=== PATIENT | female | born 1945 | race Caucasian/White ===

== ENCOUNTER 2017-04-07 08:31 | Observation (INO) | payer OTHER, MEDICARE ==
[2017-04-07 08:38] VITALS: BMI 28.0
--- NOTE | 2017-04-07 09:10 | DR.GENAD ---
HPI - PCP Primary Care Physician: isaac - HPI Comment HPI Comment: PATIENTS GLUCOSE WAS OFF YESTERDAY BUT REGULARTED IT USING HER INSULIN PUMP. - Complaint/Symptoms Chief Complaint Doctors Comments: LEFTSIDED WEAKNESS, ATAXIA SINCE YESTERDAY. Chief Complaint:: patient stated last night her sugar was high and her insulin pump was not working so she changed her set and it started work, and then she stated she was having left sided weakness. she stated it started yesterday afternoon - Nurses notes reviewed Nurses Notes Review: Yes - Source History Provided: Patient - Mode of Arrival Mode of Arrival: Ambulatory - Timing Onset of Chief Complaint: 04/06/17 Came on: Suddenly - Duration Duration: Constant Duration: Hours - Severity Severity: Moderate PMH - PMH Past Medical History: Yes Past Medical History: Diabetes, Hypertension, Hypothyroidism Past Surgical History: Yes Surgical History: Appendectomy, , Ortho Surgery - Family History History of Family Medical Conditions: Yes Family Medical History: Cancer, MS, Coronary Artery Disease, Sudden Cardiac , Hypertension - Social History Does patient currently use any type of tobacco product: No Have you used tobacco products in the last 12 months: No Type of Tobacco Use: None Does any household member use tobacco: No Alcohol Use: None Do you use any recreational Drugs:: No Lives With: Family Lives Where: Home - infectious screening In the last 2 months have you had wt loss of >10#?: NO Have you had fever, night sweats or hemotysis?: No Have you traveled outside the country in the last 6 months?: No Isolation: Standard ROS - Review of Systems Constitutional: No Symptoms Reported Eyes: No Symptoms Reported ENTM: No Symptoms Reported Respiratoy: No Symptoms Reported Cardiovascular: No Symptoms Reported Gastrointestinal/Abdominal: No Symptoms Reported Genitourinary: No Symptoms Reported Neurological: Headache, Other (;LT SIDED WEAKNESS. RT FACIAL WEAKNESS, ATAXIA) Musculoskeletal: No Symptoms Reported Integumentary: No Symptoms Reported Hematologic/Lymphatic: No Symptoms Reported Endocrine: No Symptoms Reported All Other Systems: Reviewed and Negative PE - Vital Signs Vitals: Temperature 98.6 F Pulse Rate 73 Respiratory Rate 16 Blood Pressure [Left Arm] 126/70 Blood Pressure 145/74 O2 Sat by Pulse Oximetry 100 - General Limitations: No Limitations General Appearance: Alert - Head Head Exam: Normal Inspection - Eyes Eye exam: Normal Appearance - ENT ENT Exam: Normal External Ear Exam TM/Canal Exam: Bilateral Normal Nose Exam: Normal Nose Exam Mouth Exam: Normal Inspection Throat Exam: Normal Inspection - Neck Neck Exam: Trachea Midline - Chest Chest Inspection: Symmetric Chest Wall Rise - Respiratory Respiratory Exam: Normal Lung Sounds Bilat Respiratory Exam: Bilateral Clear to Auscultation - Cardiovascular Cardiovascular Exam: Regular Rate, Normal Rhythm, Normal Heart Sounds - Abdominal Exam Abdominal Exam: Normal Bowel Sounds, Soft. negative: Tenderness - Extremities Extremities Exam: Normal Inspection - Back Back Exam: Normal Inspection - Neurologic Neurological Exam: Alert, Oriented X3, Motor Sensory Deficit (LT SIDED WEAKNESS , RT FACIAL WEAKNESS.), Other. negative: CN II-XII Intact (RT FACIAL WEKNESS) - Psychiatric Psychiatric Exam: Normal Affect, Normal Mood - Skin Skin Exam: Normal Color MDM - Additional Information Additional Information Obtained From: Family - Differential Diagnosis Differential Diagnosis: CVA, TIA, HTN, MS Course - Treatment Treatment: SEE ORDERS. - Education/Counseling Education/Counseling: Patient, Family Educated On: Diagnosis ROR - Labs Reviewed Laboratory Results Reviewed?: Yes Result Diagrams: 04/07/17 08:58 04/07/17 08:58 Laboratory: WBC 4.9 X10^3/uL (3.6-10.0) 04/07/17 08:58 RBC 4.54 X10^6/uL (3.5-5.4) 04/07/17 08:58 Hgb 13.7 g/dL (12.0-16.0) 04/07/17 08:58 Hct 40.1 % (36.0-47.0) 04/07/17 08:58 MCV 88.3 fL (80.0-100.0) 04/07/17 08:58 MCH 30.3 pg (27.0-34.0) 04/07/17 08:58 MCHC 34.3 g/dL (33.0-35.0) 04/07/17 08:58 RDW 13.2 % (11.6-16.5) 04/07/17 08:58 Plt Count 213 X10^3/uL (150.0-450.0) 04/07/17 08:58 MPV 8.0 fL (7.4-11.0) 04/07/17 08:58 Neut % 59.1 % (42.0-75.0) 04/07/17 08:58 Lymph % 25.9 % (21.0-51.0) 04/07/17 08:58 Hardee % 9.4 % (0.0-13.0) 04/07/17 08:58 Eos % 4.6 % (0.9-2.9) H 04/07/17 08:58 Baso % 1.0 % (0.2-1.0) 04/07/17 08:58 Neut # 2.9 x10^3/uL (2.2-4.8) 04/07/17 08:58 Lymph # 1.3 X10^3/uL (1.3-2.9) 04/07/17 08:58 Hardee # 0.5 x10^3/uL (0.3-0.8) 04/07/17 08:58 Eos # 0.2 x10^3/uL (0.0-0.2) 04/07/17 08:58 Baso # 0.1 X10^3/uL (0.0-0.1) 04/07/17 08:58 Absolute Nucleated RBC 0.0 /100WBC 04/07/17 08:58 INR Target Range - 04/07/17 08:58 INR 1.03 (0.8-1.3) 04/07/17 08:58 PTT 26.8 SECONDS (22.9-36.5) 04/07/17 08:58 PTT Comment - 04/07/17 08:58 Sodium 142 mmol/L (136-145) 04/07/17 08:58 Corrected Sodium 145 mmol/L (136-145) 04/07/17 08:58 Potassium 3.8 mmol/L (3.5-5.1) 04/07/17 08:58 Chloride 107 mmol/L (98-107) 04/07/17 08:58 Carbon Dioxide 26.8 mmol/L (21-32) 04/07/17 08:58 BUN 9 mg/dL (7-18) 04/07/17 08:58 Creatinine 0.69 mg/dL (0.55-1.02) 04/07/17 08:58 Est GFR (MDRD) Af Amer > 60 (>60) 04/07/17 08:58 Est GFR (MDRD) Non-Af > 60 (>60) 04/07/17 08:58 Glucose 214 mg/dL (65-99) H 04/07/17 08:58 Calcium 8.1 mg/dL (8.5-10.1) L 04/07/17 08:58 Corrected Calcium TNP 04/07/17 08:58 Magnesium 1.8 mg/dL (1.7-2.9) 04/07/17 08:58 Total Bilirubin 0.50 mg/dL (0.2-1.0) 04/07/17 08:58 AST 15 Units/L (15-37) 04/07/17 08:58 ALT 23 Units/L (12-78) 04/07/17 08:58 Alkaline Phosphatase 74 Units/L (46-116) 04/07/17 08:58 Creatine Kinase 67 Units/L (26-192) 04/07/17 08:58 CK-MB (CK-2) < 1.0 ng/mL (0-4.0) 04/07/17 08:58 CK/CKMB % Calc 1.5 % (<4) 04/07/17 08:58 Troponin I < 0.02 ng/mL (0-1.5) 04/07/17 08:58 Total Protein 7.0 g/dL (6.4-8.2) 04/07/17 08:58 Albumin 3.5 g/dL (3.4-5.0) 04/07/17 08:58 Globulin 3.5 g/dL (2.5-4.5) 04/07/17 08:58 Albumin/Globulin Ratio 1.0 Ratio (1.1-2.1) L 04/07/17 08:58 - EKG Rhythm: NSR (EKG NOTED) - Diagnosis Discharge Problem: CVA (cerebral vascular accident) Qualifiers: CVA mechanism: unspecified Qualified Code(s): I63.9 - Cerebral infarction, unspecified TIA (transient ischemic attack) Qualifiers: Transient cerebral ischemia type: other Qualified Code(s): G45.8 - Other transient cerebral ischemic attacks and related syndromes Hypertension Qualifiers: Hypertension type: essential hypertension Qualified Code(s): I10 - Essential ( primary) hypertension - Discharge Plan Disposition: 02 XFER T-[facility] Condition: Stable - Follow ups/Referrals - Instructions
[2017-04-07 09:12] LABS: BASOPHILS # (AUTO) 0.1 X10^3/uL (0.0-0.1); EOSINOPHILS # (AUTO) 0.2 x10^3/uL (0.0-0.2); EOSINOPHILS % (AUTO) 4.6 % (0.9-2.9); HEMATOCRIT 40.1 % (36.0-47.0); HEMOGLOBIN 13.7 g/dL (12.0-16.0); LYMPHOCYTES # (AUTO) 1.3 X10^3/uL (1.3-2.9); LYMPHOCYTES % (AUTO) 25.9 % (21.0-51.0); MEAN CORPUSCULAR HEMOGLOBIN 30.3 pg (27.0-34.0); MEAN CORPUSCULAR HGB CONC 34.3 g/dL (33.0-35.0); MEAN CORPUSCULAR VOLUME 88.3 fL (80.0-100.0); MONOCYTES # (AUTO) 0.5 x10^3/uL (0.3-0.8); MONOCYTES % (AUTO) 9.4 % (0.0-13.0); NEUTROPHILS # (AUTO) 2.9 x10^3/uL (2.2-4.8); NEUTROPHILS % (AUTO) 59.1 % (42.0-75.0); PLATELET COUNT 213 X10^3/uL (150.0-450.0); RED BLOOD COUNT 4.54 X10^6/uL (3.5-5.4); RED CELL DISTRIBUTION WIDTH 13.2 % (11.6-16.5); WHITE BLOOD COUNT 4.9 X10^3/uL (3.6-10.0)
[2017-04-07 09:27] LABS: BLOOD UREA NITROGEN 9 mg/dL (7-18); CALCIUM 8.1 mg/dL (8.5-10.1); CARBON DIOXIDE 26.8 mmol/L (21-32); CHLORIDE 107 mmol/L (98-107); COR NA(FOR HYPERGLY) 145 mmol/L (136-145); CREATININE 0.69 mg/dL (0.55-1.02); GLUCOSE 214 mg/dL (65-99); SODIUM 142 mmol/L (136-145); TROPONIN I < 0.02 ng/mL (0-1.5); eGFR BLACK RACES > 60 (>60); eGFR NON BLACK RACES > 60 (>60)
[2017-04-07 09:31] LABS: ALANINE AMINOTRANSFERASE 23 Units/L (12-78); ALBUMIN 3.5 g/dL (3.4-5.0); ALKALINE PHOSPHATASE 74 Units/L (46-116); ASPARTATE AMINO TRANSFERASE 15 Units/L (15-37); CREATINE KINASE 67 Units/L (26-192); CREATINE KINASE MB < 1.0 ng/mL (0-4.0); MAGNESIUM 1.8 mg/dL (1.7-2.9)
[2017-04-07 09:35] LABS: CKMB % 1.5 % (<4)
--- NOTE | 2017-04-07 10:23 | CT ---
CT HEAD WITHOUT CONTRAST CLINICAL HISTORY: 71-year-old female with weakness. COMPARISON: None. TECHNIQUE: Multiple, non-contrasted axial CT images were obtained from the skull base to the crania l vertex. FINDINGS: There are no abnormal intra- or extra-axial fluid collections, midline shift, or mass effe ct. Shipley-white differentiation is normal. Global cortical involutional changes are present that are advanced for the patient's stated age. The ventricular system is mildly enlarged but commensurate wi th the degree of sulcal prominence. Periventricular and supraventricular white matter hypodensity is present that is nonspecific in appearance, but most likely to represent microvascular ischemic sue ges. Atherosclerotic vascular calcification is present within the carotid siphons and distal vertebr al arteries. Imaged paranasal sinuses and mastoid air cells are clear. Debris in the tympanic cavities bilaterall y, likely cerumen. IMPRESSION: 1. No definite evidence of an acute intracranial process. If clinical concern persists, recommend MR I/MRA brain. 2. Moderate microvascular white matter ischemic changes, with associated volume loss. Reported By:
[2017-04-07] MEDS ORDERED: ECOTRIN TAB 325 MG PO ONE (10:25)
[2017-04-07] MEDS ORDERED: ASPIRIN ONE (10:27)
[2017-04-07] MEDS ORDERED: ULTRAM PO PRN ×2 (11:46→16:52)
[2017-04-07] MEDS ORDERED: HumaLOG SC PRN (11:46)
[2017-04-07] MEDS ORDERED: PLAVIX PO SCH (12:00)
--- NOTE | 2017-04-07 13:34 | RAD ---
HISTORY: 71-year-old female with chest pain. Study: Frontal view of the chest. Comparison: Chest radiographs January 10, 2015 Findings: The trachea is midline. The cardiac silhouette is unremarkable. The lungs are clear without focal consolidation, effusion or pneumothorax. Soft tissues are unremarkable. Osseus structures are unrem arkable. IMPRESSION: 1. No acute cardiopulmonary disease. Reported By:
[2017-04-07] MEDS ORDERED: CALCIUM CARBONATE VITAMIN D PO SCH (14:00)
[2017-04-07 16:10] VITALS: BP 123/59
[2017-04-07 16:43] LABS: CREATINE KINASE 58 Units/L (26-192); CREATINE KINASE MB < 1.0 ng/mL (0-4.0); TROPONIN I < 0.02 ng/mL (0-1.5)
[2017-04-07] MEDS ORDERED: HumuLIN R SUBCUT PRN (16:48)
[2017-04-07 16:57] LABS: CKMB % 1.7 % (<4)
[2017-04-07] MEDS ORDERED: NS 100 ML IV 100 ML IV ONE (18:13)
--- NOTE | 2017-04-07 19:29 | VAS ---
HISTORY: Concern for carotid artery stenosis. TIA and left-sided weakness. Technique: Multiple erickson scale and color flow Doppler images of the right and left carotid arterial system were obtained. The vertebral arterial system was evaluated as well. Findings: Nonocclusive color flow Doppler is seen throughout the right and left carotid arterial system. No he modynamically significant carotid arterial stenosis is seen based on velocity criteria. There is mil d bilateral intimal thickening but without evidence for high-grade stenosis (>70%) or occlusion of t he carotid arteries. The right and left vertebral artery demonstrate antegrade flow. IMPRESSION: Mild bilateral carotid intimal thickening but without evidence for high-grade stenosis or occlusion of the carotid arteries, based on Doppler velocity criteria. Appropriate, antegrade, vertebral arterial flow. Reported By:
--- NOTE | 2017-04-07 19:57 | DR.CONSULT ---
Consult - Consultation for Day of: Date: 04/07/17 - Chief Complaint Chief Complaint: Left leg weakness progressing to involve left arm, left side of her face associated with some degree of numbness. - Allergies Allergies/Adverse Reactions: Allergies Allergy/AdvReac Type Severity Reaction Status Date / Time No Known Drug Allergies Allergy Verified 04/07/17 08:32 - History of Present Illness History of Present Illness: Patient is 72-year-old female. She was admitted to the hospital yesterday with weakness of her left leg. She was dragging her left leg. She was having difficulty with ambulation. Today the weakness progressed to involve the left arm. She is hardly able to lift her left arm. Her left side of the face was also found to be drooping. Patient is awake alert. Her speech is fluent. Her naming is intact, comprehension is intact. Her repetition is also intact. Other than this patient has no complaints. She had a CAT scan of the head which did not show any evidence of stroke. Patient has long-standing history of diabetes and hypertension. Patient is on insulin pump. - Past Medical History Past Medical History: Diabetes, Hypertension, Hypothyroidism - Past Surgical History Surgical History: Appendectomy, , Ortho Surgery - Family History Family Medical History: Cancer, [place], Coronary Artery Disease, Sudden Cardiac , Hypertension - Social History Does patient currently use any type of tobacco product: No Have you used tobacco products in the last 12 months: No Type of Tobacco Use: None Does any household member use tobacco: No Alcohol Use: None Drug Use: None - Medications Home Medications: Insulin Aspart [NovoLog insulin 10 mL vial] 1 unit SQ NEEDED 04/07/17 [ History Confirmed 04/07/17] Levothyroxine Sodium [SYNTHROID 137 mcg *] 137 mcg PO DAILY 04/07/17 [History Confirmed 04/07/17] Pitavastatin Calcium [Livalo] 2 mg PO HS 04/07/17 [History Confirmed 04/07/17] - Review of Systems Constitutional: No Symptoms Reported Eyes: No Symptoms Reported ENT: No Symptoms Reported Respiratory: No Symptoms Reported Cardiovascular: No Symptoms Reported Gastrointestinal: No Symptoms Reported Genitourinary: No Symptoms Reported Musculoskeletal: No Symptoms Reported Skin: No Symptoms Reported Neurological: See HPI - Physical Exam Vital Signs: Temperature 97.8 F Pulse Rate [Right Brachial] 66 Respiratory Rate 18 Blood Pressure [Right Arm] 123/59 O2 Sat by Pulse Oximetry 96 Oriented: Normal Eyes: Normal Ear: Normal Nose: Normal Throat: Normal Respiratory: Clear Throughout Cardiovascular: Normal : Normal Auscultation: Bowel Sounds: Normal Palpation: Normal Tenderness: Normal Skin: Normal Musculoskeletal: Normal Psychiatric: Normal, Other (Neurological examination:cognitive status: as described above. Speech: as described above. Cranial nerve examination: second cranial nerve: VISUAL CARDOZA ARE INTACT ON CONFRONTATION. third, fourth, sixth cranial nerve: extraocular movementss. Pupils are 3.5 mm in size around equal and reactive to light. Fifth cranial nerve: patient has slightly decreased sensation on the left side of the face. Seventh cranial nerve: patient has [id number] egree of weakness of facial muscles of upper motor neuron type on the left side. Eighth cranial nerve: hearing is intact bilaterally. Ninth and 10th: palate is symmetrical bilaterally. 11th cranial nerve: shoulder shrug is weaker on the left side. 12th cranial nerve: tongue is in midline. Coordination: [id number] rapid alternating movements could not be done because of significant degree of drift in the left hand. Gait: could not be tested. Motor system examination: tone is normal. motor strength : it is in the range of -4 over 5 proximally as well as distally in upper and lower extremities. On the right side the strength is 5 over 5 in upper and lower extremities. DTRs: +1 equal and symmetrical in all muscle groups. Plantars: is upgoing on the left side. Sensory system examination: patient has decreased touch temperature pinprick sensation on the left side.) Mood Description: Calm, Depressed Affect: Normal Speech Pattern: Clear - Plan Plan: 71-year-old female patient was seen and examined because of acute onset of worsening of weakness on left side. She was admitted because of weakness of the left leg. Today there was further worsening of her condition. The weakness progressed to involve the weakness of left arm and the left facial muscle weakness. In addition to this on examination patient also has decreased touch temperature pinprick sensation on the left side. Based upon the presentation of her symptoms, neurological examination it is very likely that patient has suffered a stroke related to small vessel disease in the background of long-standing diabetes and hypertension. I am recommending MRI, MRA of brain, carotid Doppler, echocardiogram, lipid profile, PT, PTT, INR. In addition to this patient would also need physical therapy and swallowing evaluation. Patient is already on antiplatelet agents and statins. I'm recommending its continuation. We will follow-up.
[2017-04-07] MEDS ORDERED: SNACK - Diabetic Appropriate PO SCH (20:00)
[2017-04-07] MEDS ORDERED: PITAVASTATIN CALCIUM 2 MG PO SCH (21:00)
--- NOTE | 2017-04-07 21:54 | CT ---
HISTORY: Left-sided weakness. Concern for carotid artery stenosis. Study: CT angiogram of the carotid vessels with contrast, using the CT carotid arterial protocol. Fo r this CT carotid artery angiographic protocol, post processing 3D reformats / of the carotid arteri al circulation and its branch vessels \T\ arteries was performed. Comparison: None. Technique: Multiple CT angiographic axial images of the carotids were obtained from the upper medias tinum to the skullbase after the administration of IV contrast. For this CT angiographic carotid and neck vascular imaging protocol, post processing 3D reformats and CTA reconstruction of the carotid arterial circulation and its branch vessels was performed. FINDINGS: Mild intimal thickening is seen within the carotid arteries and vertebrobasilar arteries. There is n o evidence for severe or significant vascular atherosclerosis or calcification, however. No high-gra de or significant carotid arterial stenosis is seen. There is no evidence for a carotid body mass le terry, dissection, or carotid occlusion. The vertebrobasilar system is unremarkable. No large aneurys m is seen. No pathologic soft tissue mass or adenopathy is observed. There is mild cervical spondylo sis but evidence for acute fracture or destructive lytic bony lesion. No other vascular abnormalitie s are seen. However, it should be noted that a CVA may could certainly be present in this patient. [facility] with IV contrast and diffusion-weighted sequencing is suggested for assuran ce. IMPRESSION: Essentially negative CTA exam of the neck vessels, as discussed above. Reported By:
[2017-04-08] MEDS ORDERED: TAB-A-VITE PO SCH (09:00)
[2017-04-08] MEDS ORDERED: SYNTHROID 100 mcg TAB PO SCH (09:00)
[2017-04-08] MEDS ORDERED: NORVASC TAB 10 MG PO SCH (09:00)
[2017-04-08] MEDS ORDERED: SYNTHROID 137 mcg TAB PO SCH (09:00)
[2017-04-08] MEDS ORDERED: AMLODIPINE BESYLATE BENAZEPRIL PO SCH (09:00)
[2017-04-08] MEDS ORDERED: ECOTRIN TAB 325 MG PO SCH (09:00)
[2017-04-08] MEDS ORDERED: OSCAL+D or CALTRATE+D PO SCH (09:00)
[2017-04-08] MEDS ORDERED: LOTENSIN TAB 10 MG PO SCH (09:00)
[2017-04-08] MEDS ORDERED: [UNRECOGNIZED DRUG - REMARK] PO SCH (09:00)
== END 2017-04-07 20:10 | disposition short-term general hospital (02) ==
LOC: ER 08:31 → MED/SURG 11:48
PROVIDERS: ADMIT Internal Medicine; ATTEND Internal Medicine
DX: G45.9 Transient cerebral ischemic attack, unspecified (principal); R07.89 Other chest pain; R29.810 Facial weakness; M62.81 Muscle weakness (generalized); R26.81 Unsteadiness on feet; I10 Essential (primary) hypertension; E03.9 Hypothyroidism, unspecified; E10.9 Type 1 diabetes mellitus without complications; Z79.4 Long term (current) use of insulin
CPT/HCPCS: 36415; 70450; 70498; 71010; 80053; 82550; 82553; 83735; 84484; 85025; 85610; 85730; 93005; 93880; 94760; 96365; 99284; 99285; A4216; A4222; G0378

== ENCOUNTER → 2017-07-08 | Outpatient (CLI) | payer OTHER, MEDICARE ==
--- NOTE | 2017-07-09 10:24 | MRI ---
MRI cervical spine without contrast Indication: Neck pain and stiffness Technique: Multiplanar, multisequence imaging of the cervical spine without IV contrast administratio n. Findings: There is loss of normal cervical lordosis with focal kyphosis at C5-6. There is minimal ret rolisthesis of the C5 vertebral body. There is diffuse disc desiccation throughout the cervical spine however there is disc space loss at C5-6. Bone marrow signal within the cervical spine is within nor mal limits. The craniocervical junction is intact; however, hypertrophic granulation tissue/pannus fo rmation posterior to the dens does cause mild narrowing of the foramen magnum without definite mass e ffect on the pericervical junction. No mass or mass effect identified within the posterior fossa appe ar the cervical cord demonstrates normal signal without evidence of atrophy or expansion. At C2-3 mild disc osteophyte complex causes very mild spinal canal stenosis without neural foraminal narrowing. At C3-4 disc osteophyte complex and uncovertebral hypertrophy with left greater than right facet arth ropathy causes mild spinal canal stenosis with mild right [id number] left neural foraminal sten osis. At C4-5 disc osteophyte complex and mild right-sided uncovertebral hypertrophy causes mild spinal can al stenosis with mild right-sided neural foraminal narrowing. At C5-6 disc osteophyte complex with bulky uncovertebral hypertrophy causes moderate to severe spinal canal stenosis with mild cord flattening. There is severe right and moderate left-sided neural jennifer inal stenosis. At C6-7 mild disc osteophyte complex causes minimal spinal canal stenosis without neural foraminal na rrowing. At C7-T1 unremarkable. Impression: Multilevel discogenic degenerative change, uncovertebral hypertrophy and facet arthropath y causing varying degrees of spinal canal and neural foraminal stenosis; however, this is most severe at C5-6 as described above. Pannus formation posterior to the dens causes narrowing of the foramen magnum without mass effect or compression of the craniocervical junction at this time. Reported By:
== END | disposition home or self-care (01) ==
LOC: RAD 10:34
PROVIDERS: ATTEND Physician Assistant
DX: M75.02 Adhesive capsulitis of left shoulder (principal); M50.21 Other cervical disc displacement, high cervical region; M48.02 Spinal stenosis, cervical region; M25.78 Osteophyte, vertebrae; M12.88 Other specific arthropathies, not elsewhere classified, other specified site
CPT/HCPCS: 72141

== ENCOUNTER → 2017-07-11 | Outpatient (CLI) | payer OTHER, MEDICARE ==
--- NOTE | 2017-07-11 12:34 | MRI ---
MRI left shoulder without contrast Indication: Shoulder pain and stiffness. Adhesive capsulitis Comparison: None Technique: Multiplanar, multi sequence MR images of the left shoulder were obtained without contrast. Findings: The coronal and axial PD sequences are degraded by motion. There are mild degenerative changes of the AC joint, with minimal effacement of the underlying rotato r cuff. Trace fluid is present within the subacromial/subdeltoid bursa. There is tendinosis of the di stal supraspinatus and infraspinatus tendons. No full-thickness cuff tear or tendon retraction identi fied. The intra-articular biceps tendon is grossly intact. No overt labral tear. There is no glenohum eral joint effusion. No significantly abnormal signal within the rotator interval or capsular thicken ing appreciated to suggest adhesive capsulitis. No muscle atrophy about the shoulder. Impression: 1. Supraspinatus and infraspinatus tendinosis, subacromial/subdeltoid bursitis. No evidence for full- thickness cuff tear or tendon retraction. 2. No MR evidence for adhesive capsulitis. 3. Mild AC joint DJD. Reported By:
== END | disposition home or self-care (01) ==
LOC: RAD 09:29
PROVIDERS: ATTEND Physician Assistant
DX: M75.02 Adhesive capsulitis of left shoulder (principal); M50.21 Other cervical disc displacement, high cervical region; M19.012 Primary osteoarthritis, left shoulder; M75.52 Bursitis of left shoulder
CPT/HCPCS: 73221

== ENCOUNTER → 2017-07-22 | Outpatient (CLI) | payer OTHER, MEDICARE ==
[~2017-07-22] MED LIST: NS 100 ML IV 100 ML IV ONE; NS 250 ML IV 250 ML IV ONE
[2017-07-22 08:11] LABS: CREATININE 1.13 mg/dL (0.55-1.02)
--- NOTE | 2017-07-23 10:19 | CT ---
HISTORY: Epigastric pain. Study: CT abdomen and pelvis with contrast Comparison: CT abdomen/pelvis dated January 23, 2013. Technique: Multiple axial images of the abdomen and pelvis were obtained from the lung bases to the pubic symphy sis after the administration of IV contrast. Dose reduction techniques including Automated Exposure Control (AEC) and adjustment of mA and kV were utilized. Findings: Bibasilar scarring versus atelectasis. Otherwise, the visualized portions of the lung bases are unrem arkable. Atrophy of the pancreas is again seen with a 10 mm hypodense lesion within the body (series 4, image 27) and a 6 mm hypodense lesion within the body/tail (series 4, image 29). These appear unch anged given technique. No new abnormalities are appreciated. 1.5 cm simple appearing cyst within the left inferior renal pole. The left kidney is otherwise unremarkable. 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 The liver, spleen, right kidney, and adrenal glan ds are unremarkable in their CT appearance. The gallbladder is unremarkable in its CT appearance. No significant mesenteric lymphadenopathy or stranding can be observed. No free fluid or free air is s een within the abdomen. The large and small bowel are unremarkable. The appendix is surgically absen t. The visualized uterus appears normal for age. No obvious adnexal lesions. The urinary bladder is g rossly unremarkable. Degenerative changes of the spine. No aggressive osseous lesions. IMPRESSION: 1. No CT evidence of acute abdominal/pelvic pathology. 2. Indeterminate pancreatic hypodensities appear unchanged given technique from prior comparison. Aga in, recommend MRI of the abdomen for further characterization. 3. Other chronic findings as above. Reported By:
== END ==
LOC: RAD 07:40
PROVIDERS: ATTEND Internal Medicine Gastroenterology
DX: R10.13 Epigastric pain (principal)
CPT/HCPCS: 36415; 74170; 82565; 84520; A4222

== ENCOUNTER 2017-09-22 15:16 | Emergency (ER) | payer OTHER, MEDICARE ==
[2017-09-22 15:30] VITALS: BMI 26.5
[2017-09-22 16:27] LABS: BASOPHILS # (AUTO) 0.1 X10^3/uL (0.0-0.1); BASOPHILS % (AUTO) 0.9 % (0.2-1.0); EOSINOPHILS # (AUTO) 0.2 x10^3/uL (0.0-0.2); EOSINOPHILS % (AUTO) 2.9 % (0.9-2.9); HEMATOCRIT 39.7 % (36.0-47.0); HEMOGLOBIN 13.7 g/dL (12.0-16.0); LYMPHOCYTES # (AUTO) 1.6 X10^3/uL (1.3-2.9); LYMPHOCYTES % (AUTO) 23.7 % (21.0-51.0); MEAN CORPUSCULAR HEMOGLOBIN 30.2 pg (27.0-34.0); MEAN CORPUSCULAR HGB CONC 34.4 g/dL (33.0-35.0); MEAN CORPUSCULAR VOLUME 87.9 fL (80.0-100.0); MEAN PLATELET VOLUME 7.8 fL (7.4-11.0); MONOCYTES # (AUTO) 0.7 x10^3/uL (0.3-0.8); MONOCYTES % (AUTO) 9.6 % (0.0-13.0); NEUTROPHILS # (AUTO) 4.3 x10^3/uL (2.2-4.8); NEUTROPHILS % (AUTO) 62.9 % (42.0-75.0); PLATELET COUNT 253 X10^3/uL (150.0-450.0); RED BLOOD COUNT 4.52 X10^6/uL (3.5-5.4); RED CELL DISTRIBUTION WIDTH 13.2 % (11.6-16.5); WHITE BLOOD COUNT 6.8 X10^3/uL (3.6-10.0)
[2017-09-22 16:38] LABS: BLOOD UREA NITROGEN 13 mg/dL (7-18); CALCIUM 9.2 mg/dL (8.5-10.1); CARBON DIOXIDE 31.2 mmol/L (21-32); CHLORIDE 106 mmol/L (98-107); COR NA(FOR HYPERGLY) 145 mmol/L (136-145); CREATININE 0.83 mg/dL (0.55-1.02); SODIUM 144 mmol/L (136-145); TROPONIN I < 0.02 ng/mL (0-1.5); eGFR BLACK RACES > 60 (>60); eGFR NON BLACK RACES > 60 (>60)
[2017-09-22 16:43] LABS: ALANINE AMINOTRANSFERASE 27 Units/L (12-78); ALBUMIN 3.6 g/dL (3.4-5.0); ALKALINE PHOSPHATASE 72 Units/L (46-116); ASPARTATE AMINO TRANSFERASE 12 Units/L (15-37); CKMB % 2.7 % (<4); CREATINE KINASE 37 Units/L (26-192); CREATINE KINASE MB < 1.0 ng/mL (0-4.0)
--- NOTE | 2017-09-22 17:01 | CT ---
HEAD CT WITHOUT IV CONTRAST CLINICAL INDICATION: Left leg weakness. Stroke March 2017 TECHNIQUE: Axial CT images from skull base to vertex without IV contrast.Dose reduction techniques in cluding Automated Exposure Control (AEC) and adjustment of mA and kV were utlized. COMPARISON: 04/07/2017 FINDINGS: Interval evolution of previous right basal ganglia infarct. There is no evidence of acute infarction , intracranial hemorrhage, mass or mass effect, or abnormal extra-axial collection. The density of th e larger dural venous sinuses is normal. The ventricles are normal in size, shape and position. The s kull base and calvarium are normal. The included paranasal sinuses and mastoid air cells are predomin antly clear. IMPRESSION: 1. No acute intracranial abnormality. 2. Interval evolution of old right basal ganglia infarct. Reported By:
--- NOTE | 2017-09-22 17:57 | DR.GENAD ---
HPI - PCP Primary Care Physician: ADRIENNE - Complaint/Symptoms Chief Complaint Doctors Comments: Patient had a CVA in March treated at [facility], children states that she is having worsening in her left aditi- paresis. She is off balance dragging left foot and worsening of facial contracture. Chief Complaint:: C/O LEFT LEG DRAGGING, STATES FACE AND MOUTH IS DRAWING - Source History Provided: Patient - Mode of Arrival Mode of Arrival: Wheelchair - Timing Onset of Chief Complaint: 09/22/17 PMH - PMH Past Medical History: Yes Past Medical History: Diabetes, Hypertension, Hypothyroidism Past Surgical History: Yes Surgical History: Appendectomy, , Ortho Surgery - Family History History of Family Medical Conditions: Yes Family Medical History: Cancer, [place], Coronary Artery Disease, Sudden Cardiac , Hypertension - Social History Does patient currently use any type of tobacco product: No Have you used tobacco products in the last 12 months: No Type of Tobacco Use: None Alcohol Use: None Do you use any recreational Drugs:: Yes Lives With: Spouse Lives Where: Home - infectious screening In the last 2 months have you had wt loss of >10#?: NO Have you had fever, night sweats or hemotysis?: No Have you traveled outside the country in the last 6 months?: No Isolation: Standard ROS - Review of Systems Eyes: No Symptoms Reported ENTM: No Symptoms Reported Respiratoy: No Symptoms Reported Cardiovascular: No Symptoms Reported Gastrointestinal/Abdominal: No Symptoms Reported Genitourinary: No Symptoms Reported Neurological: No Symptoms Reported Musculoskeletal: No Symptoms Reported Integumentary: No Symptoms Reported Hematologic/Lymphatic: No Symptoms Reported Endocrine: No Symptoms Reported Psychiatric: No Symptoms Reported All Other Systems: Reviewed and Negative PE - Vital Signs Vitals: Temperature 98.3 F Pulse Rate [Right Brachial] 68 Pulse Rate 76 Respiratory Rate 18 Blood Pressure [Right Arm] 114/64 Blood Pressure [Left Arm] 126/70 Blood Pressure 126/60 O2 Sat by Pulse Oximetry 94 - General General Appearance: Alert, In No Apparent Distress - Head Head Exam: Normal Inspection, Atraumatic - Eyes Eye exam: Normal Appearance, PERRL, EOMI - ENT ENT Exam: Normal Exam External Ear Exam: Normal External Inspection TM/Canal Exam: Bilateral Normal Nose Exam: Normal Nose Exam Mouth Exam: Normal Inspection Throat Exam: Normal Inspection - Neck Neck Exam: Normal Inspection - Chest Chest Inspection: Normal Inspection - Respiratory Respiratory Exam: Normal Lung Sounds Bilat Respiratory Exam: Bilateral Clear to Auscultation - Cardiovascular Cardiovascular Exam: Regular Rate, Normal Rhythm - Abdominal Exam Abdominal Exam: Normal Inspection, Normal Bowel Sounds Abdominal Tenderness: negative: RUQ, RLQ, LUQ, LLQ, Epigastrium, Suprapubic, Diffuse, Mild, Moderate, Severe, Other - Extremities Extremities Exam: Other (left aditi paresis) - Back Back Exam: Normal Inspection - Neurologic Neurological Exam: Alert, Oriented X3, CN II-XII Intact - Psychiatric Psychiatric Exam: Normal Affect - Skin Skin Exam: Warm, Dry, Intact Course - Consultation Called: 18:25 (Patient accepted for by Dr Jenkins) ROR - Labs Reviewed Result Diagrams: 09/22/17 16:10 09/22/17 16:10 Laboratory: WBC 6.8 X10^3/uL (3.6-10.0) 09/22/17 16:10 RBC 4.52 X10^6/uL (3.5-5.4) 09/22/17 16:10 Hgb 13.7 g/dL (12.0-16.0) 09/22/17 16:10 Hct 39.7 % (36.0-47.0) 09/22/17 16:10 MCV 87.9 fL (80.0-100.0) 09/22/17 16:10 MCH 30.2 pg (27.0-34.0) 09/22/17 16:10 MCHC 34.4 g/dL (33.0-35.0) 09/22/17 16:10 RDW 13.2 % (11.6-16.5) 09/22/17 16:10 Plt Count 253 X10^3/uL (150.0-450.0) 09/22/17 16:10 MPV 7.8 fL (7.4-11.0) 09/22/17 16:10 Neut % 62.9 % (42.0-75.0) 09/22/17 16:10 Lymph % 23.7 % (21.0-51.0) 09/22/17 16:10 [place] % 9.6 % (0.0-13.0) 09/22/17 16:10 Eos % 2.9 % (0.9-2.9) 09/22/17 16:10 Baso % 0.9 % (0.2-1.0) 09/22/17 16:10 Neut # 4.3 x10^3/uL (2.2-4.8) 09/22/17 16:10 Lymph # 1.6 X10^3/uL (1.3-2.9) 09/22/17 16:10 [place] # 0.7 x10^3/uL (0.3-0.8) 09/22/17 16:10 Eos # 0.2 x10^3/uL (0.0-0.2) 09/22/17 16:10 Baso # 0.1 X10^3/uL (0.0-0.1) 09/22/17 16:10 Absolute Nucleated RBC 0.1 /100WBC 09/22/17 16:10 INR Target Range - 09/22/17 16:10 INR 0.96 (0.8-1.3) 09/22/17 16:10 PTT 26.5 SECONDS (22.9-36.5) 09/22/17 16:10 PTT Comment - 09/22/17 16:10 Sodium 144 mmol/L (136-145) 09/22/17 16:10 Corrected Sodium 145 mmol/L (136-145) 09/22/17 16:10 Potassium 4.5 mmol/L (3.5-5.1) 09/22/17 16:10 Chloride 106 mmol/L (98-107) 09/22/17 16:10 Carbon Dioxide 31.2 mmol/L (21-32) 09/22/17 16:10 BUN 13 mg/dL (7-18) 09/22/17 16:10 Creatinine 0.83 mg/dL (0.55-1.02) 09/22/17 16:10 Est GFR (MDRD) Af Amer > 60 (>60) 09/22/17 16:10 Est GFR (MDRD) Non-Af > 60 (>60) 09/22/17 16:10 Glucose 142 mg/dL (65-99) H 09/22/17 16:10 Calcium 9.2 mg/dL (8.5-10.1) 09/22/17 16:10 Corrected Calcium TNP 09/22/17 16:10 Total Bilirubin 0.20 mg/dL (0.2-1.0) 09/22/17 16:10 AST 12 Units/L (15-37) L 09/22/17 16:10 ALT 27 Units/L (12-78) 09/22/17 16:10 Alkaline Phosphatase 72 Units/L (46-116) 09/22/17 16:10 Creatine Kinase 37 Units/L (26-192) 09/22/17 16:10 CK-MB (CK-2) < 1.0 ng/mL (0-4.0) 09/22/17 16:10 CK/CKMB % Calc 2.7 % (<4) 09/22/17 16:10 Troponin I < 0.02 ng/mL (0-1.5) 09/22/17 16:10 Total Protein 7.0 g/dL (6.4-8.2) 09/22/17 16:10 Albumin 3.6 g/dL (3.4-5.0) 09/22/17 16:10 Globulin 3.4 g/dL (2.5-4.5) 09/22/17 16:10 Albumin/Globulin Ratio 1.1 Ratio (1.1-2.1) 09/22/17 16:10 - XRAY XRAY Interpreted by: Radiologist (CT Brain:Interval evolution of previous right basal ganglia infarct. There is no evidence of acute infarction, intracraniazl hemorrhage, mass or mass effect, or abnormal extra axial collection. The density of the larger dural venous sinuses is normal. Ther ventricles are normal in size, shape and position. The skull base and calvarium are normal. 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
[2017-09-22 19:03] VITALS: BP 116/79
[2017-09-22] MEDS ORDERED: MORPHINE SULFATE INJ 4 MG IVP ONE (20:36)
[2017-09-22] MEDS ORDERED: MORPHINE SULFATE INJ 4 MG ONE (20:39)
== END 2017-09-22 20:50 | disposition short-term general hospital (02) ==
LOC: ER 15:32
DX: R29.818 Other symptoms and signs involving the nervous system (principal); Z86.73 Personal history of transient ischemic attack (TIA), and cerebral infarction without residual deficits; Z79.01 Long term (current) use of anticoagulants
CPT/HCPCS: 36415; 70450; 80053; 82550; 82553; 84484; 85025; 85610; 85730; 93005; 93010; 96365; 96367; 96374; 99284; 99285; A4222; J2270

== ENCOUNTER 2018-04-10 19:00 | Observation (INO) ==
--- NOTE | 2018-04-10 19:46 | DR.CP ---
HPI Time Seen Time seen: 19:38 HPI Comment HPI Comment: PRECORS[DIAL CHEST PAIN WITH SOB AND WEAKNESS. HAVE HEADCAHE AND VISUAL DISTURBANCES. Complaint Chief Complaint Doctor Comments: CHEST PAIN TIMES 3 DAYS. RT EYE DROOPING AND RT FACIAL WEAKNESS FOR FEW DAYS UNDER CURRENT EVALUATION. PENDING MRI. Chief Complaint:: Dull pain in her chest. Hurts to breathe and she states that she has feeling week. This has been going on for a few days more so when she does her exercises. Self Treatment fo Chief Complaint: N/A Reviewed Nurses Notes Review: Yes Source History Provided: Patient and Family Member Mode of Arrival Mode of Arrival: Ambulatory Timing Onset of Chief Complaint: 04/09/18 Came on: Suddenly Duration Duration: Intermittent Duration: Days Location Location of Chest Pain: Left and Chest Context Onset: At rest, With light exertion and With heavy exertion Cardiac Risk Factors: Diabetes PE Risk Factors: None History of: None and Aspirin in last 24 hours Prehospital Care: None and ASA Quality Quality: Aching (DULL ACHE.) Severity Severity: Moderate Modifying Factors Worsens: Breathing Impoves: Nothing Associated Signs and Symptoms Associated Signs and Symptoms: Shortness of Breath Other History Other History: WEAKNESS. PMH PMH Past Medical History: Yes Past Medical History: CVA, Diabetes and Hyperthyroidism Past Surgical History: Yes Surgical History: Appendectomy and CAPABILITY LEAD Surgery Past Surgical History Comment: 3 C-Sections Back Surgery Family History History of Family Medical Conditions: No Family Medical History: Cancer, [place], Coronary Artery Disease, Sudden Cardiac and Hypertension Social History Does patient currently use any type of tobacco product: No Have you used tobacco products in the last 12 months: No Type of Tobacco Use: None Does any household member use tobacco: No Do you use any recreational Drugs:: No Lives Where: Home infectious screening In the last 2 months have you had wt loss of >10#?: NO Have you had fever, night sweats or hemotysis?: No Have you traveled outside the country in the last 6 months?: No Isolation: Standard ROS Review of Systems Constitutional: Weakness and Fatigue Eyes: Other (RT EYE DROOPING. RT FACE NUMBNESS, DECREASE SENSATION.) ENTM: No Symptoms Reported Respiratoy: Short of Breath Cardiovascular: Chest Pain Gastrointestinal/Abdominal: No Symptoms Reported Genitourinary: No Symptoms Reported Neurological: No Symptoms Reported and Weakness Musculoskeletal: No Symptoms Reported Integumentary: No Symptoms Reported Hematologic/Lymphatic: No Symptoms Reported Endocrine: No Symptoms Reported Psychiatric: No Symptoms Reported All Other Systems: Reviewed and Negative PE Vitals Vitals: Temperature 97.7 F Pulse Rate [Apical] 53 Pulse Rate 65 Respiratory Rate 14 Blood Pressure [Right Arm] 154/69 Blood Pressure [Left Arm] 105/51 Blood Pressure 115/54 O2 Sat by Pulse Oximetry 96 General Limitations: No Limitations General Appearance: Alert and In No Apparent Distress Head Head Exam: Normal Inspection, Atraumatic, Normocephalic and Other (RT FACIAL NUMBNESS AND WEAKNESS. RT EYE DROOPING.) Eyes Eye exam: Normal Appearance, PERRL, EOMI and Other (RT EYE DROOPING.) ENT ENT Exam: Normal Exam and Other Chest Chest Inspection: Normal Inspection Respiratory Respiratory Exam: Normal Lung Sounds Bilat Respiratory Exam: Bilateral: Clear to Auscultation Cardiovascular Cardiovascular Exam: Regular Rate, Normal Rhythm and Normal Heart Sounds Pulse: Normal, Radial and Femoral Edema: Normal Abdominal Exam Abdominal Exam: Normal Inspection, Normal Bowel Sounds and Soft; negative Tenderness Extremities Extremities Exam: Normal Inspection Back Back Exam: Normal Inspection Neurologic Neurological Exam: Alert and Oriented X3 Psychiatric Psychiatric Exam: Normal Affect and Normal Mood Skin Skin Exam: Warm, Dry, Intact and Normal Color MDM Additional Information Additional Information Obtained From: Family Differential Diagnosis Differential Diagnosis: Angina, Chest Wall Pain, CHF, Gastritis, Myocardial Infarction, Pericarditis, Pleuritis (RT EYE DROOPING, RT FACIAL WEAKNESS.), Pneumonia, Pneumothorax and Pulmonary Embolus COURSE Treatment Treatment: SEE ORDERS. Consultation Consultation Comments: DISCUSS PATIENT WITH DR. RODRIGUEZ. HE WILL ADMIT PATIENT. Education/Counseling Education/Counseling: Patient and Family Educated On: Diagnosis ROR Labs Reviewed Laboratory Results Reviewed?: Yes Result Diagrams: 04/10/18 19:44 04/10/18 19:44 Laboratory: WBC 4.9 X10^3/uL (3.6-10.0) 04/10/18 19:44 RBC 3.93 X10^6/uL (3.5-5.4) 04/10/18 19:44 Hgb 12.1 g/dL (12.0-16.0) 04/10/18 19:44 Hct 35.6 % (36.0-47.0) L 04/10/18 19:44 MCV 90.6 fL (80.0-100.0) 04/10/18 19:44 MCH 30.9 pg (27.0-34.0) 04/10/18 19:44 MCHC 34.1 g/dL (33.0-35.0) 04/10/18 19:44 RDW 12.9 % (11.6-16.5) 04/10/18 19:44 Plt Count 254 X10^3/uL (150.0-450.0) 04/10/18 19:44 MPV 8.0 fL (7.4-11.0) 04/10/18 19:44 Neut % (Auto) 62.0 % (42.0-75.0) 04/10/18 19:44 Lymph % (Auto) 25.8 % (21.0-51.0) 04/10/18 19:44 [place] % (Auto) 8.1 % (0.0-13.0) 04/10/18 19:44 Eos % (Auto) 3.1 % (0.9-2.9) H 04/10/18 19:44 Baso % (Auto) 1.0 % (0.2-1.0) 04/10/18 19:44 Neut # (Auto) 3.0 x10^3/uL (2.2-4.8) 04/10/18 19:44 Lymph # (Auto) 1.3 X10^3/uL (1.3-2.9) 04/10/18 19:44 [place] # (Auto) 0.4 x10^3/uL (0.3-0.8) 04/10/18 19:44 Eos # (Auto) 0.1 x10^3/uL (0.0-0.2) 04/10/18 19:44 Baso # (Auto) 0.0 X10^3/uL (0.0-0.1) 04/10/18 19:44 Absolute Nucleated RBC 0.0 /100WBC 04/10/18 19:44 INR Target Range - 04/10/18 19:44 INR 0.92 (0.8-1.3) 04/10/18 19:44 APTT 27.9 SECONDS (22.9-36.5) 04/10/18 19:44 PTT Comment - 04/10/18 19:44 Sodium 141 mmol/L (136-145) 04/10/18 19:44 Corrected Sodium 143 mmol/L (136-145) 04/10/18 19:44 Potassium 3.8 mmol/L (3.5-5.1) 04/10/18 19:44 Chloride 104 mmol/L (98-107) 04/10/18 19:44 Carbon Dioxide 33.4 mmol/L (21-32) H 04/10/18 19:44 BUN 16 mg/dL (7-18) 04/10/18 19:44 Creatinine 1.08 mg/dL (0.55-1.02) H 04/10/18 19:44 Est GFR (MDRD) Af Amer > 60 (>60) 04/10/18 19:44 Est GFR (MDRD) Non-Af 53 (>60) L 04/10/18 19:44 Glucose 189 mg/dL (65-99) H 04/10/18 19:44 POC Glucose (mg/dL) 101 mg/dL (65-99) H 04/11/18 05:56 Calcium 9.2 mg/dL (8.5-10.1) 04/10/18 19:44 Corrected Calcium TNP 04/10/18 19:44 Total Bilirubin 0.20 mg/dL (0.2-1.0) 04/10/18 19:44 AST 15 Units/L (15-37) 04/10/18 19:44 ALT 28 Units/L (12-78) 04/10/18 19:44 Alkaline Phosphatase 80 Units/L (46-116) 04/10/18 19:44 Creatine Kinase 47 Units/L (26-192) 04/11/18 03:20 CK-MB (CK-2) < 1.0 ng/mL (0-4.0) 04/11/18 03:20 CK/CKMB % Calc 2.1 % (<4) 04/11/18 03:20 Troponin I < 0.02 ng/mL (0-1.5) 04/11/18 03:20 Total Protein 6.8 g/dL (6.4-8.2) 04/10/18 19:44 Albumin 3.4 g/dL (3.4-5.0) 04/10/18 19:44 Globulin 3.4 g/dL (2.5-4.5) 04/10/18 19:44 Albumin/Globulin Ratio 1.0 Ratio (1.1-2.1) L 04/10/18 19:44 Specimen Type Clean catch urine 04/11/18 03:32 Urine Color Pale yellow (YELLOW) 04/11/18 03:32 Urine Appearance Clear (CLEAR) 04/11/18 03:32 Urine pH 6.0 (5.0 - 8.0) 04/11/18 03:32 Ur Specific [place] 1.005 (1.000-1.030) 04/11/18 03:32 Urine Protein Negative (NEGATIVE) 04/11/18 03:32 Urine Glucose (UA) Negative (NEGATIVE) 04/11/18 03:32 Urine Ketones Negative (NEGATIVE) 04/11/18 03:32 Urine Occult Blood Negative (NEGATIVE) 04/11/18 03:32 Urine Nitrite Negative (NEGATIVE) 04/11/18 03:32 Urine Bilirubin Negative (NEGATIVE) 04/11/18 03:32 Urine Urobilinogen Normal (NORMAL) 04/11/18 03:32 Ur Leukocyte Esterase Negative (NEGATIVE) 04/11/18 03:32 XRAY XRAY Interpreted by: Radiologist XRAY Findings: REPORT DISCUSS WITH PATIENT ABD FAMILY. EKG Rate: 59 [place]: Normal Rhythm: NSR Block: None Hypertrophy: None ST: Normal Diagnosis Discharge Problem: Chest pain, Drooping eyelid, Facial weakness, Generalized muscle weakness
[2018-04-10] MEDS ORDERED: ASPIRIN 81 MG CHEWTAB PO ONE (19:48)
[2018-04-10 19:57] LABS: EOSINOPHILS # (AUTO) 0.1 x10^3/uL (0.0-0.2); EOSINOPHILS % (AUTO) 3.1 % (0.9-2.9); HEMATOCRIT 35.6 % (36.0-47.0); HEMOGLOBIN 12.1 g/dL (12.0-16.0); LYMPHOCYTES # (AUTO) 1.3 X10^3/uL (1.3-2.9); LYMPHOCYTES % (AUTO) 25.8 % (21.0-51.0); MEAN CORPUSCULAR HEMOGLOBIN 30.9 pg (27.0-34.0); MEAN CORPUSCULAR HGB CONC 34.1 g/dL (33.0-35.0); MEAN CORPUSCULAR VOLUME 90.6 fL (80.0-100.0); MONOCYTES # (AUTO) 0.4 x10^3/uL (0.3-0.8); MONOCYTES % (AUTO) 8.1 % (0.0-13.0); PLATELET COUNT 254 X10^3/uL (150.0-450.0); RED BLOOD COUNT 3.93 X10^6/uL (3.5-5.4); RED CELL DISTRIBUTION WIDTH 12.9 % (11.6-16.5); WHITE BLOOD COUNT 4.9 X10^3/uL (3.6-10.0)
--- NOTE | 2018-04-10 20:08 | RAD ---
HISTORY: 72-year-old female with dull pain in the chest with painful inspiration. Study: Frontal view of the chest. Comparison: Chest radiograph 04/07/2017 Findings: The trachea is midline. The cardiac silhouette is unremarkable. The lungs are clear without focal c onsolidation, effusion or pneumothorax. Soft tissues are unremarkable. Osseous structures are unrema rkable. IMPRESSION: 1. No acute cardiopulmonary disease. Reported By:
[2018-04-10 20:10] LABS: BLOOD UREA NITROGEN 16 mg/dL (7-18); CALCIUM 9.2 mg/dL (8.5-10.1); CARBON DIOXIDE 33.4 mmol/L (21-32); CHLORIDE 104 mmol/L (98-107); COR NA(FOR HYPERGLY) 143 mmol/L (136-145); CREATININE 1.08 mg/dL (0.55-1.02); SODIUM 141 mmol/L (136-145); TROPONIN I < 0.02 ng/mL (0-1.5); eGFR NON BLACK RACES 53 (>60)
[2018-04-10 20:13] LABS: ALANINE AMINOTRANSFERASE 28 Units/L (12-78); ALBUMIN 3.4 g/dL (3.4-5.0); ALKALINE PHOSPHATASE 80 Units/L (46-116); ASPARTATE AMINO TRANSFERASE 15 Units/L (15-37); CKMB % 2.1 % (<4); CREATINE KINASE 58 Units/L (26-192); CREATINE KINASE MB 1.2 ng/mL (0-4.0); TOTAL PROTEIN 6.8 g/dL (6.4-8.2)
[2018-04-10] MEDS: NS 1000 ML 1,000 ML IV SCH (22:55)
[2018-04-10 23:01] VITALS: BMI 22.1
[2018-04-11 03:48] LABS: CKMB % 2.1 % (<4); CREATINE KINASE 47 Units/L (26-192); CREATINE KINASE MB < 1.0 ng/mL (0-4.0); TROPONIN I < 0.02 ng/mL (0-1.5)
[2018-04-11 04:01] LABS: BILIRUBIN,URINE NEGATIVE (NEGATIVE); BLOOD/HEMOGLOBIN,URINE NEGATIVE (NEGATIVE); GLUCOSE, URINE NEGATIVE (NEGATIVE); KETONES,URINE NEGATIVE (NEGATIVE); LEUKOCYTE ESTERASE ,URINE NEGATIVE (NEGATIVE); NITRITES,URINE NEGATIVE (NEGATIVE); PROTEIN,URINE NEGATIVE (NEGATIVE); UROBILINOGEN,URINE NORMAL (NORMAL)
[2018-04-11 04:17] LABS: APPEARANCE,URINE CLEAR (CLEAR); COLOR,URINE PALE YELLOW (YELLOW)
[2018-04-11 08:25] LABS: BASOPHILS # (AUTO) 0.1 X10^3/uL (0.0-0.1); BASOPHILS % (AUTO) 1.2 % (0.2-1.0); EOSINOPHILS # (AUTO) 0.2 x10^3/uL (0.0-0.2); EOSINOPHILS % (AUTO) 3.8 % (0.9-2.9); HEMATOCRIT 39.4 % (36.0-47.0); HEMOGLOBIN 13.5 g/dL (12.0-16.0); LYMPHOCYTES # (AUTO) 1.6 X10^3/uL (1.3-2.9); MEAN CORPUSCULAR HGB CONC 34.2 g/dL (33.0-35.0); MEAN CORPUSCULAR VOLUME 90.6 fL (80.0-100.0); MEAN PLATELET VOLUME 8.5 fL (7.4-11.0); MONOCYTES # (AUTO) 0.4 x10^3/uL (0.3-0.8); MONOCYTES % (AUTO) 8.3 % (0.0-13.0); NEUTROPHILS # (AUTO) 3.1 x10^3/uL (2.2-4.8); NEUTROPHILS % (AUTO) 57.7 % (42.0-75.0); PLATELET COUNT 220 X10^3/uL (150.0-450.0); RED BLOOD COUNT 4.35 X10^6/uL (3.5-5.4); RED CELL DISTRIBUTION WIDTH 12.9 % (11.6-16.5); WHITE BLOOD COUNT 5.3 X10^3/uL (3.6-10.0)
[2018-04-11 08:32] LABS: ALANINE AMINOTRANSFERASE 28 Units/L (12-78); ALBUMIN 3.4 g/dL (3.4-5.0); ALKALINE PHOSPHATASE 87 Units/L (46-116); ASPARTATE AMINO TRANSFERASE 17 Units/L (15-37); BLOOD UREA NITROGEN 14 mg/dL (7-18); CALCIUM 9.4 mg/dL (8.5-10.1); CARBON DIOXIDE 29.8 mmol/L (21-32); CHLORIDE 107 mmol/L (98-107); CHOLESTEROL 226 mg/dL (0-200); CREATININE 0.89 mg/dL (0.55-1.02); HDL CHOLESTEROL 76 mg/dL (40-60); SODIUM 143 mmol/L (136-145); TRIGLYCERIDES 73 mg/dL (0-150); eGFR NON BLACK RACES > 60 (>60)
[2018-04-11 08:40] LABS: CREATINE KINASE 51 Units/L (26-192); TROPONIN I < 0.02 ng/mL (0-1.5)
[2018-04-11] MEDS ORDERED: INSULIN ASPART U PRN (09:36)
[2018-04-11] MEDS ORDERED: AMLODIPINE BENAZEPRIL PO SCH (09:45)
[2018-04-11] MEDS ORDERED: DICLOFENAC SODIUM PO SCH (09:45)
[2018-04-11] MEDS ORDERED: PATIENT'S HOME MEDICATION (Triamterene-Hydrochlorothiazid [Triamterene-Hydrochlorothiazid] PO SCH (09:45)
[2018-04-11] MEDS ORDERED: PROTONIX TAB 40 MG PO SCH ×3 (10:00→21:00)
[2018-04-11] MEDS ORDERED: ULTRAM ONE (10:01)
[2018-04-11] MEDS: XANAX PO SCH (10:05)
[2018-04-11] MEDS: ULTRAM PO PRN ×2 (10:05→20:44)
[2018-04-11] MEDS: LIORESAL PO SCH ×2 (12:03→20:44)
[2018-04-11] MEDS: PLAVIX PO SCH (12:03)
[2018-04-11] MEDS: NORVASC TAB 10 MG PO SCH (12:04)
[2018-04-11] MEDS: MAXZIDE 37.5/25 MG PO SCH (12:04)
[2018-04-11] MEDS: SYNTHROID 125 mcg TAB PO SCH (12:04)
[2018-04-11] MEDS: LOTENSIN TAB 10 MG PO SCH (12:05)
--- NOTE | 2018-04-11 12:20 | MRI ---
MRI BRAIN WITHOUT CONTRAST CLINICAL HISTORY: 72-year-old female weakness, dizziness and blurred vision. COMPARISON: CT head 09/22/2017. TECHNIQUE: Multiplanar, multisequence MR images of the brain were obtained without contrast. FINDINGS: There is no evidence of diffusion restriction. The craniocervical junction is normal. Pitui tary and optic nerve complex are normal. Multifocal confluent and punctate T2 FLAIR signal hyperinten sities are present within the periventricular and supraventricular white matter that are nonspecific in appearance but most likely to represent microvascular white matter ischemic changes. Chronic ische mirta insult within the right perez radiata extending through the basal ganglia with wallerian degener ation; with small volume associated encephalomalacia and punctate susceptibility consistent with prio r microhemorrhage. Normal signal characteristics and morphology are demonstrated within the cerebral cortex, corpus callosum and cerebellum. The major vascular flow voids, to include the dural venous si nuses, are intact. No other region of abnormal susceptibility on gradient imaging. Age advanced corti uyen volume loss is present, with commensurate sulcal and ventricular prominence. The basilar cisterns are normal. The orbits and globes are within normal limits. The paranasal sinuses, tympanic cavities and mastoids are clear. IMPRESSION: 1. No acute ischemic or hemorrhagic insult. 2. Chronic ischemic insult right perez radiata with wallerian degeneration. 3. Moderate, chronic microvascular white matter ischemic insult with associated volume loss. Reported By:
[2018-04-11] MEDS: NS 1000 ML 1,000 ML IV SCH ×2 (20:56)
[2018-04-11] MEDS ORDERED: CRESTOR TAB 10 MG PO SCH (21:00)
[2018-04-11] MEDS ORDERED: MIRALAX POWDER (1 DOSE 17 G) PO SCH (21:00)
[2018-04-11] MEDS ORDERED: OSCAL+D or CALTRATE+D PO SCH (21:00)
[2018-04-11] MEDS ORDERED: [UNRECOGNIZED DRUG - REMARK] PO SCH (21:00)
[2018-04-11] MEDS ORDERED: CALCIUM CARBONATE VITAMIN D3 PO SCH (21:00)
[2018-04-11] MEDS ORDERED: ZANTAC PO SCH (21:00)
--- NOTE | 2018-04-11 23:06 | DR.H&P ---
H&P - History & Physical for Day of: H&P Date: 04/10/18 - Chief Complaint Chief Complaint: CHEST PAIN, WEAKNESS, SOB, FACIAL DROOPING - History of Present Illness History of Present Illness: IS A 72 YEAR OLD PATIENT OF OURS WHO PRESENTED TO THE EMERGENCY ROOM WITH COMPLAINTS OF CHEST PAIN, SHORNTESS OF BREATH, AND GENERALIZED WEAKNESS. SHE ALSO REPORTS RIGHT EYE DROOPING AND RIGHT SIDE FACIAL WEAKNESS THAT STARTED TWO DAYS AGO. A BRAIN MRI WITHOUT CONTRAST HAS BEEN ORDERED BY HER OPTHAMOLOGIST. ON ARRIVAL, VITALS WERE 97.0-65-18-98%- 115/54. LABS WERE OBTAINED. ABNORMAL LAB VALUES INCLUDE THE FOLLOWING: HCT 35.6 , CARBON DIOXIDE 33.4, CREATININE 1.08, GLUCOSE 189. CARDIAC ENZYMES WITHIN NORMAL LIMITS. CHEST XRAY REVEALED NO ACUTE CARDIOPULMONARY DISEASE. EKG REVEALED SINUS RHYTHM WITH HR 59. WE ADMITTED PATIENT FOR FURTHER EVALUATION AND TREATMENT OF CHEST PAIN AND GENERALIZED WEAKNESS. SHE WAS STARTED ON NORMAL SALINE AT [facility]. WE PLAN TO OBTAIN SERIAL CARDIAC ENZYMES AND EKGs. OTHERWISE, WE WILL FOLLOW UP WITH AM LABS AND BRAIN MRI AND CONTINUE TO MONITOR PATIENT. - Past Medical History Past Medical History: Diabetes, Hyperthyroidism, CVA - Past Surgical History Surgical History: Appendectomy, TANGLED YARN SPOOL STRAIGHTENER Surgery - Family History Family Medical History: Cancer, [place], Coronary Artery Disease, Sudden Cardiac , Hypertension - Social History Does patient currently use any type of tobacco product: No Have you used tobacco products in the last 12 months: No Type of Tobacco Use: None Does any household member use tobacco: No Alcohol Use: None Drug Use: None - Medications Home Medications: No Known Drug Allergies Allergy (Verified 04/07/17 08:32) CONTINUE taking the following medications alprazolam [Xanax] 0.125 mg PO DAILY 04/10/18 [History] amlodipine-benazepril 1 tab PO DAILY 04/10/18 [History] baclofen 20 mg PO BID 04/10/18 [History] calcium carbonate-vitamin D3 [Caltrate 600 + D] 1 tab PO HS 04/10/18 [History] insulin aspart U-100 [Novolog U-100 Insulin aspart] See Label Instructions .ROUTE .COMPLEX PRN 04/10/18 [History] levothyroxine [Synthroid] 1 tab PO DAILY 04/10/18 [History] pantoprazole 1 tab PO DAILY 04/10/18 [History] pantoprazole [Protonix] 40 mg PO DAILY 04/10/18 [History] ranitidine HCl 1 tab PO HS 04/10/18 [History] triamterene-hydrochlorothiazid 1 tab PO DAILY 04/10/18 [History] - Physical Exam Vital Signs: Temperature 98 F Pulse Rate [Apical] 61 Pulse Rate 65 Respiratory Rate 17 Blood Pressure [Right Arm] 111/57 Blood Pressure [Left Arm] 105/51 Blood Pressure 115/54 O2 Sat by Pulse Oximetry 98 - Allergies Allergies/Adverse Reactions: Allergies Allergy/AdvReac Type Severity Reaction Status Date / Time No Known Drug Allergies Allergy Verified 04/07/17 08:32
[2018-04-12] MEDS: NS 1000 ML 1,000 ML IV SCH (01:15)
[2018-04-12 05:53] LABS: BASOPHILS # (AUTO) 0.1 X10^3/uL (0.0-0.1); BLOOD UREA NITROGEN 14 mg/dL (7-18); CALCIUM 9.4 mg/dL (8.5-10.1); CHLORIDE 106 mmol/L (98-107); CREATININE 0.86 mg/dL (0.55-1.02); EOSINOPHILS # (AUTO) 0.2 x10^3/uL (0.0-0.2); EOSINOPHILS % (AUTO) 3.8 % (0.9-2.9); HEMATOCRIT 37.3 % (36.0-47.0); LYMPHOCYTES # (AUTO) 1.8 X10^3/uL (1.3-2.9); LYMPHOCYTES % (AUTO) 35.2 % (21.0-51.0); MEAN CORPUSCULAR HEMOGLOBIN 31.3 pg (27.0-34.0); MEAN CORPUSCULAR HGB CONC 34.9 g/dL (33.0-35.0); MEAN CORPUSCULAR VOLUME 89.6 fL (80.0-100.0); MEAN PLATELET VOLUME 7.9 fL (7.4-11.0); MONOCYTES # (AUTO) 0.4 x10^3/uL (0.3-0.8); MONOCYTES % (AUTO) 8.3 % (0.0-13.0); NEUTROPHILS # (AUTO) 2.6 x10^3/uL (2.2-4.8); NEUTROPHILS % (AUTO) 51.7 % (42.0-75.0); PLATELET COUNT 250 X10^3/uL (150.0-450.0); RED BLOOD COUNT 4.16 X10^6/uL (3.5-5.4); RED CELL DISTRIBUTION WIDTH 12.9 % (11.6-16.5); SODIUM 143 mmol/L (136-145); eGFR NON BLACK RACES > 60 (>60)
[2018-04-12] MEDS: MAXZIDE 37.5/25 MG PO SCH (08:36)
[2018-04-12] MEDS: ULTRAM PO PRN (08:36)
[2018-04-12] MEDS: LIORESAL PO SCH (08:37)
[2018-04-12] MEDS: XANAX PO SCH (08:37)
[2018-04-12] MEDS: LOTENSIN TAB 10 MG PO SCH (08:38)
[2018-04-12] MEDS: NORVASC TAB 10 MG PO SCH (08:38)
[2018-04-12] MEDS: SYNTHROID 125 mcg TAB PO SCH (08:39)
[2018-04-12] MEDS: PLAVIX PO SCH (08:40)
[2018-04-12] MEDS ORDERED: PATIENT'S HOME MEDICATION PO SCH (09:00)
[2018-04-12] MEDS ORDERED: ECOTRIN TAB 325 MG PO SCH (09:00)
[2018-04-12] MEDS ORDERED: HumaLOG SC ONE ×2 (09:56→10:00)
[2018-04-12 10:32] VITALS: BP 108/53
== END 2018-04-12 12:05 | disposition home or self-care (01) ==
LOC: ICU 19:02 → ER 19:02 → ICU 22:10
PROVIDERS: ADMIT Obstetrics & Gynecology Obstetrics; ATTEND Internal Medicine
DX: Z79.4 Long term (current) use of insulin; E11.65 Type 2 diabetes mellitus with hyperglycemia; R07.89 Other chest pain; R26.89 Other abnormalities of gait and mobility; R51 Headache; Z79.01 Long term (current) use of anticoagulants; R06.02 Shortness of breath; R53.1 Weakness; Z79.899 Other long term (current) drug therapy; R29.810 Facial weakness
CPT/HCPCS: 36415; 70551; 71010; 71045; 80048; 80053; 80061; 81003; 82550; 82553; 84484; 85025; 85610; 85730; 93005; 93010; 96365; 97112; 97161; 97166; 97535; 99284; A4216; A4222; G0378; J1817; J7030

== ENCOUNTER 2020-08-09 12:04 | Observation (INO) ==
[2020-08-09] MEDS ORDERED: ANTIVERT TAB 25 MG PO PRN (14:07)
[2020-08-09] MEDS ORDERED: ZOFRAN INJ 4 MG VIAL ONE (14:18)
[2020-08-09] MEDS ORDERED: TYLENOL 325 MG TAB PO PRN (14:25)
[2020-08-09] MEDS ORDERED: ULTRAM PO PRN (14:25)
[2020-08-09] MEDS ORDERED: MORPHINE SULFATE INJ 2 MG INJ ONE (14:29)
[2020-08-09] MEDS: MORPHINE SULFATE INJ 2 MG INJ IVP PRN ×2 (14:42→20:38)
[2020-08-09] MEDS: ZOFRAN INJ 4 MG VIAL IVP PRN ×2 (14:43→20:43)
[2020-08-09 14:58] LABS: BASOPHILS % (AUTO) 0.5 % (0.2-1.0); EOSINOPHILS % (AUTO) 0.2 % (0.9-2.9); HEMATOCRIT 35.8 % (36.0-47.0); HEMOGLOBIN 11.8 g/dL (12.0-16.0); LYMPHOCYTES # (AUTO) 0.8 X10^3/uL (1.3-2.9); LYMPHOCYTES % (AUTO) 15.1 % (21.0-51.0); MEAN CORPUSCULAR HEMOGLOBIN 28.5 pg (27.0-34.0); MEAN CORPUSCULAR HGB CONC 33.1 g/dL (33.0-35.0); MEAN CORPUSCULAR VOLUME 86.2 fL (80.0-100.0); MEAN PLATELET VOLUME 7.4 fL (7.4-11.0); MONOCYTES # (AUTO) 0.3 x10^3/uL (0.3-0.8); MONOCYTES % (AUTO) 5.7 % (0.0-13.0); NEUTROPHILS # (AUTO) 4.2 x10^3/uL (2.2-4.8); NEUTROPHILS % (AUTO) 78.5 % (42.0-75.0); PLATELET COUNT 209 X10^3/uL (150.0-450.0); RED BLOOD COUNT 4.15 X10^6/uL (3.5-5.4); WHITE BLOOD COUNT 5.4 X10^3/uL (3.6-10.0)
[2020-08-09] MEDS: NS 1000 ML 1,000 ML IV SCH (15:00)
--- NOTE | 2020-08-09 15:08 | CT ---
[id number] female with dizzinessSTUDYBRAIN W/O CONCOMPARISONPrevious head CT from 04/19/2020TECHNIQUEAxial imaging was performed from the vertex to the base of skull without intravenous contrast being administered. Sagittal and coronal reformations were generated. Automated exposure control techniques were used with this exam.FINDINGSMild age related atrophic changes are present. Posterior fossa and supratentorial region demonstrate no evidence of intracranial hemorrhage or extracerebral fluid collections. Ventricles are symmetric in size and position with no mass effect seen. A focal low density is again seen in the right perez radiata extending into the basal ganglia laterally, consistent with an old lacunar infarct. On the bone windows, no acute bony abnormality is identified. Visualized aspect of the paranasal sinuses and mastoid air cells are clear.IMPRESSIONStable exam with no acute intracranial abnormality identifiedElectronically signed by: EDGARDO KRAFT (Aug 09, 2020 15:06:28)
[2020-08-09 15:17] LABS: ALANINE AMINOTRANSFERASE 21 Units/L (12-78); ALBUMIN 3.4 g/dL (3.4-5.0); ALKALINE PHOSPHATASE 79 Units/L (46-116); ASPARTATE AMINO TRANSFERASE 15 Units/L (15-37); BLOOD UREA NITROGEN 13 mg/dL (7-18); CHLORIDE 106 mmol/L (98-107); CKMB % 3.3 % (<4); COR NA(FOR HYPERGLY) 144 mmol/L (136-145); CREATINE KINASE 61 Units/L (26-192); CREATININE 0.67 mg/dL (0.55-1.02); SODIUM 142 mmol/L (136-145); TOTAL PROTEIN 6.9 g/dL (6.4-8.2); TROPONIN I < 0.02 ng/mL (0-1.5); eGFR NON BLACK RACES > 60 (>60)
[2020-08-09 15:23] LABS: CARBON DIOXIDE 26.8 mmol/L (21-32)
--- NOTE | 2020-08-09 15:27 | RAD ---
EXAM: CHEST X-RAYHISTORY: Shortness of breath. Severe dizziness. Weakness.TECHNIQUE: AP chest x-ray dated 08/09/2020 at 2:36 PM.COMPARISON: None available.FINDINGS:The heart size and mediastinum are within normal limits. The lung krishna and costophrenic angles are clear. There is no acute parenchymal infiltrate, pleural effusion, or pneumothorax seen. The visualized bony structures are within normal limits.IMPRESSION:1. No evidence for acute cardiopulmonary disease seen.Electronically signed by: Ambrosio Hanson (Aug 09, 2020 15:26:30)
[2020-08-09 15:44] VITALS: BMI 18.6
[2020-08-09 21:37] LABS: BILIRUBIN,URINE NEGATIVE (NEGATIVE); BLOOD/HEMOGLOBIN,URINE 1+ (NEGATIVE); GLUCOSE, URINE 3+ (NEGATIVE); KETONES,URINE 4+ (NEGATIVE); LEUKOCYTE ESTERASE ,URINE NEGATIVE (NEGATIVE); NITRITES,URINE NEGATIVE (NEGATIVE); PROTEIN,URINE 1+ (NEGATIVE); UROBILINOGEN,URINE NORMAL (NORMAL)
[2020-08-09 21:43] LABS: APPEARANCE,URINE CLEAR (CLEAR); COLOR,URINE YELLOW (YELLOW)
[2020-08-09 21:44] LABS: BACTERIA,URINE TRACE /HPF (NEGATIVE); MUCUS,URINE FEW /HPF (NEGATIVE); RBC,URINE NONE SEEN /HPF (0-3); SQUAMOUS EPITHELIAL CELL,UR FEW /HPF (NEGATIVE)
[2020-08-10] MEDS: NS 1000 ML 1,000 ML IV SCH ×2 (00:03→05:01)
[2020-08-10 05:41] LABS: BASOPHILS % (AUTO) 0.8 % (0.2-1.0); EOSINOPHILS # (AUTO) 0.1 x10^3/uL (0.0-0.2); EOSINOPHILS % (AUTO) 2.5 % (0.9-2.9); HEMOGLOBIN 10.7 g/dL (12.0-16.0); LYMPHOCYTES # (AUTO) 1.4 X10^3/uL (1.3-2.9); LYMPHOCYTES % (AUTO) 31.4 % (21.0-51.0); MEAN CORPUSCULAR HGB CONC 33.6 g/dL (33.0-35.0); MEAN CORPUSCULAR VOLUME 86.4 fL (80.0-100.0); MEAN PLATELET VOLUME 7.7 fL (7.4-11.0); MONOCYTES # (AUTO) 0.4 x10^3/uL (0.3-0.8); MONOCYTES % (AUTO) 9.4 % (0.0-13.0); NEUTROPHILS # (AUTO) 2.5 x10^3/uL (2.2-4.8); NEUTROPHILS % (AUTO) 55.9 % (42.0-75.0); PLATELET COUNT 207 X10^3/uL (150.0-450.0); WHITE BLOOD COUNT 4.5 X10^3/uL (3.6-10.0)
[2020-08-10 05:46] LABS: ALANINE AMINOTRANSFERASE 15 Units/L (12-78); ALBUMIN 2.7 g/dL (3.4-5.0); ALKALINE PHOSPHATASE 68 Units/L (46-116); ASPARTATE AMINO TRANSFERASE 12 Units/L (15-37); BLOOD UREA NITROGEN 13 mg/dL (7-18); CALCIUM 8.3 mg/dL (8.5-10.1); CARBON DIOXIDE 26.9 mmol/L (21-32); CHLORIDE 112 mmol/L (98-107); COR CA(FOR HYPOALB) 9.3 mg/dL (8.5-10.1); SODIUM 147 mmol/L (136-145); TOTAL PROTEIN 5.7 g/dL (6.4-8.2); eGFR NON BLACK RACES > 60 (>60)
--- NOTE | 2020-08-10 08:56 | DR.UPDATE ---
H&P Update History and Physical Update: History and Physical reviewed and patient examined. Changes noted: Yes with the following: IS A 74 YEAR OLD PATIENT OF OURS. SHE PRESENTED TO THE HOSPITAL A DIRECT ADMISSION DUE TO COMPLAINTS OF SEVERE VERTIGO WITH ASSOCIATED NAUSEA, VOMITING, AND LLQ ABDOMINAL PAIN. ABDOMINAL PAIN IS DESCRIBED LLQ, CRAMPING, AND IS CURRENTLY RATED A 3/10. SYMPTOMS STARTED APPROXIMATELY THREE DAYS PRIOR. SHE WAS GIVEN AUGMENTIN 875/125MG PO BID AND [id number] EAR DRIPS TID X 10 DAYS FOR ACUTE SINUSITIS AND FLUID IN THE EARS. SHE DENIES IMPROVEMENT IN DIZZINESS AND NAUSEA SINCE STARTING THE MEDICATIONS. ON ARRIVAL TO THE HOSPITAL, VITALS WERE 98.2-64-18-99%-153/69. LABS WERE OBTAINED. ABNORMAL LAB VALUES INCLUDE THE FOLLOWING: HGB 11.8, HCT 35.8, GLUCOSE 177. A URINALYSIS WAS OBTAINED AND REVEALED: WBC 0-2, PROTEIN 1+, GLUCOSE 3+, OCCULT BLOOD 1+. COVID-[address] WAS OBTAINED AND REVEALED: Stable exam with no acute intracranial abnormality identified. A CHEST XRAY WAS OBTAINED AND REVEALED: 1. No evidence for acute cardiopulmonary disease seen. EKG REVEALED: SINUS RHYTHM WITH HR 66. SHE WAS STARTED ON NORMAL SALINE AT 80 ML/HR, ZOFRAN 4MG IV Q4H PRN, MORPHINE 1- 2MG IV Q4H PRN PAIN, MECLIZINE 25MG PO TID PRN, AND HER HOME MEDICATIONS WERE RESUMED. OTHERWISE, WE PLAN TO FOLLOW UP WITH AM LABS AND CONTINUE TO MONITOR. Prescription drug monitoring program results: PDMP reviewed and no concerns joseph ntified H&P Reviewed: Yes Patient was examined?: Yes
[2020-08-10] MEDS ORDERED: PAXIL PO SCH ×3 (09:00→11:00)
[2020-08-10] MEDS ORDERED: SYNTHROID 125 mcg TAB PO SCH (09:00)
[2020-08-10] MEDS ORDERED: TAB-A-VITE PO SCH (09:00)
[2020-08-10] MEDS ORDERED: CITRACAL + VITAMIN D PO SCH (09:00)
[2020-08-10] MEDS ORDERED: ALLEGRA PO SCH (09:00)
[2020-08-10] MEDS ORDERED: LOTENSIN TAB 10 MG PO SCH (09:00)
[2020-08-10] MEDS ORDERED: PROTONIX TAB 40 MG PO SCH (09:00)
[2020-08-10] MEDS ORDERED: LIPITOR TAB 10 MG PO SCH (09:00)
[2020-08-10] MEDS ORDERED: NORVASC TAB 10 MG PO SCH (09:00)
[2020-08-10] MEDS ORDERED: ASPIRIN EC 81 MG PO SCH (09:00)
[2020-08-10] MEDS ORDERED: AUGMENTIN 875 MG/125 MG TAB PO SCH (10:00)
[2020-08-10] MEDS: CLARITIN-D 12 HOUR TAB PO SCH ×2 (13:09→13:56)
[2020-08-10] MEDS ORDERED: CORTISPORIN OTIC SUSP OT SCH (14:00)
[2020-08-10 14:15] VITALS: BP 122/75
[2020-08-10] MEDS ORDERED: SINGULAIR TAB 10 MG PO SCH (21:00)
[2020-08-11] MEDS ORDERED: ZOLOFT PO SCH (09:00)
== END 2020-08-10 13:50 | disposition home or self-care (01) ==
LOC: MED/SURG
PROVIDERS: ADMIT Internal Medicine; ATTEND Internal Medicine
DX: R11.2 Nausea with vomiting, unspecified; R10.32 Left lower quadrant pain; R06.02 Shortness of breath; E11.65 Type 2 diabetes mellitus with hyperglycemia; Z20.828 Contact with and (suspected) exposure to other viral communicable diseases; Z79.899 Other long term (current) drug therapy; R42 Dizziness and giddiness

== ENCOUNTER 2021-09-21 13:27 | Observation (INO) ==
--- NOTE | 2021-09-21 13:39 | DR.DIZZY ---
HPI Time seen Time Seen by Provider: 09/21/21 13:38 PMH PMH Past Medical History: CVA, Diabetes and Hyperthyroidism Past Surgical History: Yes Surgical History: Appendectomy, and Ortho Surgery Family History Family Medical History: Cancer, [place], Coronary Artery Disease, Sudden Cardiac and Hypertension Social History Do you use any recreational Drugs:: No PE Vital Signs Vitals: Temperature 98.4 F Pulse Rate 68 Respiratory Rate 20 Blood Pressure [Right Arm] 141/65 Blood Pressure 137/87 O2 Sat by Pulse Oximetry 98 ROR Labs Reviewed Result Diagrams: 09/21/21 14:20 09/21/21 14:20 Laboratory: WBC 4.3 X10^3/uL (3.6-10.0) 09/21/21 14:20 RBC 3.80 X10^6/uL (3.5-5.4) 09/21/21 14:20 Hgb 11.1 g/dL (12.0-16.0) L 09/21/21 14:20 Hct 32.8 % (36.0-47.0) L 09/21/21 14:20 MCV 86.5 fL (80.0-100.0) 09/21/21 14:20 MCH 29.2 pg (27.0-34.0) 09/21/21 14:20 MCHC 33.7 g/dL (33.0-35.0) 09/21/21 14:20 RDW 15.0 % (11.6-16.5) 09/21/21 14:20 Plt Count 214 X10^3/uL (150.0-450.0) 09/21/21 14:20 MPV 7.6 fL (7.4-11.0) 09/21/21 14:20 Neut % (Auto) 59.8 % (42.0-75.0) 09/21/21 14:20 Lymph % (Auto) 27.8 % (21.0-51.0) 09/21/21 14:20 Bollinger % (Auto) 8.0 % (0.0-13.0) 09/21/21 14:20 Eos % (Auto) 3.5 % (0.9-2.9) H 09/21/21 14:20 Baso % (Auto) 0.9 % (0.2-1.0) 09/21/21 14:20 Neut # (Auto) 2.6 x10^3/uL (2.2-4.8) 09/21/21 14:20 Lymph # (Auto) 1.2 X10^3/uL (1.3-2.9) L 09/21/21 14:20 Bollinger # (Auto) 0.3 x10^3/uL (0.3-0.8) 09/21/21 14:20 Eos # (Auto) 0.1 x10^3/uL (0.0-0.2) 09/21/21 14:20 Baso # (Auto) 0.0 X10^3/uL (0.0-0.1) 09/21/21 14:20 Absolute Nucleated RBC 0.0 /100WBC 09/21/21 14:20 Sodium 138 mmol/L (136-145) 09/21/21 14:20 Corrected Sodium 140 mmol/L (136-145) 09/21/21 14:20 Potassium 3.0 mmol/L (3.5-5.1) L* 09/21/21 14:20 Chloride 104 mmol/L (98-107) 09/21/21 14:20 Carbon Dioxide 31.0 mmol/L (21-32) 09/21/21 14:20 BUN 18 mg/dL (7-18) 09/21/21 14:20 Creatinine 0.70 mg/dL (0.55-1.02) 09/21/21 14:20 Est GFR (MDRD) Af Amer > 60 (>60) 09/21/21 14:20 Est GFR (MDRD) Non-Af > 60 (>60) 09/21/21 14:20 Glucose 179 mg/dL (65-99) H 09/21/21 14:20 Calcium 8.5 mg/dL (8.5-10.1) 09/21/21 14:20 Corrected Calcium 9.1 mg/dL (8.5-10.1) 09/21/21 14:20 Total Bilirubin 0.30 mg/dL (0.2-1.0) 09/21/21 14:20 AST 16 Units/L (15-37) 09/21/21 14:20 ALT 22 Units/L (12-78) 09/21/21 14:20 Alkaline Phosphatase 66 Units/L (46-116) 09/21/21 14:20 Creatine Kinase 73 Units/L (26-192) 09/21/21 14:20 CK-MB (CK-2) 1.5 ng/mL (0-4.0) 09/21/21 14:20 CK/CKMB % Calc 2.1 % (<4) 09/21/21 14:20 Troponin I < 0.02 ng/mL (0-1.5) 09/21/21 14:20 Total Protein 6.4 g/dL (6.4-8.2) 09/21/21 14:20 Albumin 3.2 g/dL (3.4-5.0) L 09/21/21 14:20 Globulin 3.2 g/dL (2.5-4.5) 09/21/21 14:20 Albumin/Globulin Ratio 1.0 Ratio (1.1-2.1) L 09/21/21 14:20 Specimen Type Clean catch urine 09/21/21 16:55 Urine Color Yellow (YELLOW) 09/21/21 16:55 Urine Appearance Clear (CLEAR) 09/21/21 16:55 Urine pH 6.0 (5.0 - 8.0) 09/21/21 16:55 Ur Specific Rhododendron 1.010 (1.000-1.030) 09/21/21 16:55 Urine Protein Negative (NEGATIVE) 09/21/21 16:55 Urine Glucose (UA) Negative (NEGATIVE) 09/21/21 16:55 Urine Ketones 1+ (NEGATIVE) 09/21/21 16:55 Urine Occult Blood Negative (NEGATIVE) 09/21/21 16:55 Urine Nitrite Negative (NEGATIVE) 09/21/21 16:55 Urine Bilirubin Negative (NEGATIVE) 09/21/21 16:55 Urine Urobilinogen Normal (NORMAL) 09/21/21 16:55 Ur Leukocyte Esterase 2+ (NEGATIVE) 09/21/21 16:55 Urine RBC None seen /HPF (0-3) 09/21/21 16:55 Urine WBC 3-5 /HPF (0-5) 09/21/21 16:55 Ur Squamous Epith Cells Few /HPF (NEGATIVE) 09/21/21 16:55 Urine Bacteria Trace /HPF (NEGATIVE) 12/30/21 16:55 Ur Culture Indicated? No/not indicated 09/21/21 16:55 SARS CoV-2 RNA Rapid YOLY Negative (NEGATIVE) 09/21/21 17:31 Opioid Opioid Risk Tool Age (Abhay box if 16-45): No History of Preadolescent Sexual Abuse: No Total: 0 Total Score Risk Category: Low Risk Copyright: Bill BOLTON predicting aberrant behaviors Instructions Forms: Precautions for COVID19 [facility] Social Distancing
[2021-09-21 14:30] LABS: BASOPHILS % (AUTO) 0.9 % (0.2-1.0); EOSINOPHILS # (AUTO) 0.1 x10^3/uL (0.0-0.2); EOSINOPHILS % (AUTO) 3.5 % (0.9-2.9); HEMATOCRIT 32.8 % (36.0-47.0); HEMOGLOBIN 11.1 g/dL (12.0-16.0); LYMPHOCYTES # (AUTO) 1.2 X10^3/uL (1.3-2.9); LYMPHOCYTES % (AUTO) 27.8 % (21.0-51.0); MEAN CORPUSCULAR HEMOGLOBIN 29.2 pg (27.0-34.0); MEAN CORPUSCULAR HGB CONC 33.7 g/dL (33.0-35.0); MEAN CORPUSCULAR VOLUME 86.5 fL (80.0-100.0); MEAN PLATELET VOLUME 7.6 fL (7.4-11.0); MONOCYTES # (AUTO) 0.3 x10^3/uL (0.3-0.8); NEUTROPHILS # (AUTO) 2.6 x10^3/uL (2.2-4.8); NEUTROPHILS % (AUTO) 59.8 % (42.0-75.0); PLATELET COUNT 214 X10^3/uL (150.0-450.0); WHITE BLOOD COUNT 4.3 X10^3/uL (3.6-10.0)
--- NOTE | 2021-09-21 14:44 | CT ---
HISTORYPT REPORTS THAT WHILE STANDING OUTSIDE SHE GOT DIZZY AND STARTED TO SWAY AND SOMEONE HAD TO HELP HER SIT, PT REPORTS THIS HAS BEEN GOING ON FOR A WHILE ( BEING UNSTEADY ON HER FEET )STUDYBRAIN W/O CONCOMPARISONCT brain 08/09/2020.TECHNIQUEMultiple axial images of the head were performed from the skullbase to the vertex using standard departmental protocol. Sagittal and coronal reformatted images were performed. Dose reduction techniques including Automated Exposure Control (AEC) and adjustment of mA and kV were utilized.FINDINGSThe lateral ventricles and basilar cisterns are patent.No parenchymal mass or hematoma. Metz-white differentiation appears acutely preserved. Mild low attenuation change in the subcortical and deep supratentorial white matter. Chronic right basal ganglia lacunar infarct.No extra-axial collection.The globes are intact.No air fluid levels in the paranasal sinuses. No paranasal sinus wall thickening or sclerosis. Mastoid air cells are clear.The calvarium is intact.IMPRESSIONNo acute intracranial abnormality. Stable chronic right basal ganglia lacunar infarct.Electronically signed by: Edgar Yeager (Sep 21, 2021 14:42:57)
[2021-09-21 14:53] LABS: ALANINE AMINOTRANSFERASE 22 Units/L (12-78); ALBUMIN 3.2 g/dL (3.4-5.0); ALKALINE PHOSPHATASE 66 Units/L (46-116); ASPARTATE AMINO TRANSFERASE 16 Units/L (15-37); BLOOD UREA NITROGEN 18 mg/dL (7-18); CALCIUM 8.5 mg/dL (8.5-10.1); CHLORIDE 104 mmol/L (98-107); CKMB % 2.1 % (<4); COR CA(FOR HYPOALB) 9.1 mg/dL (8.5-10.1); COR NA(FOR HYPERGLY) 140 mmol/L (136-145); CREATINE KINASE 73 Units/L (26-192); CREATINE KINASE MB 1.5 ng/mL (0-4.0); SODIUM 138 mmol/L (136-145); TOTAL PROTEIN 6.4 g/dL (6.4-8.2); TROPONIN I < 0.02 ng/mL (0-1.5); eGFR NON BLACK RACES > 60 (>60)
--- NOTE | 2021-09-21 15:03 | RAD ---
EXAM: CHEST X-RAYHISTORY: Dizziness.TECHNIQUE: AP CXR dated September 21, 2021 at 2:22 PM.COMPARISON: CXR dated August 09, 2020.FINDINGS:The heart size and mediastinum are within normal limits. The lung krishna and costophrenic angles are clear. There is no acute parenchymal infiltrate, pleural effusion, or pneumothorax seen. The visualized bony structures are within normal limits.IMPRESSION:1. No evidence for acute cardiopulmonary disease seen.2. No significant interval change from the previous exam.Electronically signed by: Ambrosio Hanson (Sep 21, 2021 15:02:00)
[2021-09-21] MEDS ORDERED: KLOR-CON PO ONE (15:05)
[2021-09-21] MEDS ORDERED: KLOR-CON ONE (15:08)
[2021-09-21 17:08] LABS: BILIRUBIN,URINE NEGATIVE (NEGATIVE); BLOOD/HEMOGLOBIN,URINE NEGATIVE (NEGATIVE); GLUCOSE, URINE NEGATIVE (NEGATIVE); KETONES,URINE 1+ (NEGATIVE); LEUKOCYTE ESTERASE ,URINE 2+ (NEGATIVE); NITRITES,URINE NEGATIVE (NEGATIVE); PROTEIN,URINE NEGATIVE (NEGATIVE); UROBILINOGEN,URINE NORMAL (NORMAL)
[2021-09-21 17:31] LABS: APPEARANCE,URINE CLEAR (CLEAR); COLOR,URINE YELLOW (YELLOW); RBC,URINE NONE SEEN /HPF (0-3)
[2021-09-21 17:32] LABS: BACTERIA,URINE TRACE /HPF (NEGATIVE); SQUAMOUS EPITHELIAL CELL,UR FEW /HPF (NEGATIVE)
[2021-09-21 20:23] VITALS: BMI 3430.6
[2021-09-22] MEDS ORDERED: D50W ABBOJECT SYR IV ONE (03:20)
[2021-09-22] MEDS: D50W ABBOJECT SYR ONE ×2 (03:30→03:37)
[2021-09-22] MEDS ORDERED: NS 1,000 ML IV 1,000 ML IV SCH (04:00)
[2021-09-22 05:29] LABS: BASOPHILS % (AUTO) 1.2 % (0.2-1.0); EOSINOPHILS # (AUTO) 0.2 x10^3/uL (0.0-0.2); EOSINOPHILS % (AUTO) 4.9 % (0.9-2.9); HEMATOCRIT 33.5 % (36.0-47.0); HEMOGLOBIN 11.4 g/dL (12.0-16.0); LYMPHOCYTES % (AUTO) 30.5 % (21.0-51.0); MEAN CORPUSCULAR HEMOGLOBIN 29.2 pg (27.0-34.0); MEAN CORPUSCULAR HGB CONC 34.1 g/dL (33.0-35.0); MEAN CORPUSCULAR VOLUME 85.6 fL (80.0-100.0); MONOCYTES # (AUTO) 0.3 x10^3/uL (0.3-0.8); MONOCYTES % (AUTO) 9.8 % (0.0-13.0); NEUTROPHILS # (AUTO) 1.8 x10^3/uL (2.2-4.8); NEUTROPHILS % (AUTO) 53.6 % (42.0-75.0); PLATELET COUNT 212 X10^3/uL (150.0-450.0); RED BLOOD COUNT 3.91 X10^6/uL (3.5-5.4); RED CELL DISTRIBUTION WIDTH 14.8 % (11.6-16.5); WHITE BLOOD COUNT 3.3 X10^3/uL (3.6-10.0)
[2021-09-22 05:43] LABS: ALANINE AMINOTRANSFERASE 20 Units/L (12-78); ALKALINE PHOSPHATASE 63 Units/L (46-116); ASPARTATE AMINO TRANSFERASE 17 Units/L (15-37); BLOOD UREA NITROGEN 13 mg/dL (7-18); CALCIUM 8.6 mg/dL (8.5-10.1); CARBON DIOXIDE 27.5 mmol/L (21-32); CHLORIDE 106 mmol/L (98-107); COR CA(FOR HYPOALB) 9.4 mg/dL (8.5-10.1); COR NA(FOR HYPERGLY) 143 mmol/L (136-145); CREATININE 0.62 mg/dL (0.55-1.02); SODIUM 141 mmol/L (136-145); TOTAL PROTEIN 6.4 g/dL (6.4-8.2); eGFR NON BLACK RACES > 60 (>60)
[2021-09-22 06:01] LABS: CKMB % 1.9 % (<4); CREATINE KINASE 62 Units/L (26-192); CREATINE KINASE MB 1.2 ng/mL (0-4.0); TROPONIN I < 0.02 ng/mL (0-1.5)
[2021-09-22] MEDS: NovoLIN R (or HumuLIN R) SUBCUT PRN ×2 (09:00→12:23)
[2021-09-22] MEDS ORDERED: K-DUR TAB 20 MEQ PO PRN (10:15)
[2021-09-22 11:33] VITALS: BP 132/61
[2021-09-22 11:50] LABS: CKMB % 1.9 % (<4); CREATINE KINASE 63 Units/L (26-192); CREATINE KINASE MB 1.2 ng/mL (0-4.0); TROPONIN I < 0.02 ng/mL (0-1.5)
[2021-09-22 11:59] LABS: CHOL/HDL RATIO 2.6 (0.0-5.0)
--- NOTE | 2021-09-22 13:02 | CT ---
HISTORYTIASTUDYCT brain without [id number]/30/2021[facility] axial images of the brain were obtained from the skull base to the vertex without administration of IV contrast. Dose reduction techniques including Automated Exposure Control (AEC) and adjustment of mA and kV were utilized.FINDINGSNo acute intraparenchymal hemorrhage or mass can be identified. No extra-axial fluid collections are seen. No alteration in the attenuation of the brain parenchyma can be identified to suggest acute or subacute ischemic change. The ventricular system is symmetric and nondilated. The extracranial structures appear unremarkable.IMPRESSION1. No acute intracranial process can be identified.Electronically signed by: SHEA DANG (Sep 22, 2021 13:00:28)
--- NOTE | 2021-09-22 13:12 | RAD ---
HISTORYweaknessSTUDYSingle-view [id number]/30/2021FINDINGSThe trachea is midline. The cardiac silhouette is unremarkable . The lungs are clear without focal infiltrate or effusion. The bony thorax is unremarkable.IMPRESSIONNo acute cardiopulmonary disease.Electronically signed by: SHEA DANG (Sep 22, 2021 13:10:51)
--- NOTE | 2021-09-22 15:29 | DR.H&P ---
H&P - History & Physical for Day of: H&P Date: 09/21/21 - Chief Complaint Chief Complaint: DIZZINESS, WEAKNESS - History of Present Illness History of Present Illness: PT IS 76 WF WITH PMH OF CVA, ER ADMISSION WITH CO NEW ONSET DIZZINESS AND WEAKNESS MORE THAN USUAL. PT REPORTS SHE SEES DR WRIGHT AND RECENTLY HAD GOOD CARDIAC REPORT, WITH CAROTIDS US PER DR DELEON WITHIN THE PAST 6 MOS. PT STATES SHE DID NOT HAVE LOC OR AMS, BUT "WALKING IN CIRCLES" WEAKER ON LEFT SIDE. PT HAS PMH OF CVA, HTN, DM, CAD. PT ADMITTED FOR TREATMENT AND EVALUATION OF ACUTE ILLNESS - Past Medical History Past Medical History: Anxiety, Arthritis, CVA, Diabetes, Hyperthyroidism - Past Surgical History Surgical History: - Family History Family Medical History: Diabetes Mellitus, Cancer, Hypertension - Social History Does patient currently use any type of tobacco product: No Have you used tobacco products in the last 12 months: No Type of Tobacco Use: None Does any household member use tobacco: No Alcohol Use: None - Medications Home Medications: No Known Drug Allergies Allergy (Verified 09/21/21 17:23) CONTINUE taking the following medications alprazolam 0.25 mg PO DAILY 09/21/21 [History] baclofen 20 mg PO TID 09/21/21 [History] fexofenadine [Jessika] 180 mg PO Q24H 09/21/21 [History] hydrochlorothiazide 25 mg PO DAILY PRN 09/21/21 [History] - Review of Systems Constitutional: Weakness Eyes: No Symptoms Reported ENT: No Symptoms Reported Respiratory: denies: Shortness of Breath, SOB with Excertion Cardiovascular: denies: Chest Pain, Edema Gastrointestinal: No Symptoms Reported Genitourinary: No Symptoms Reported Musculoskeletal: No Symptoms Reported Skin: No Symptoms Reported Neurological: Weakness, Incoordination. denies: Change in Speech, Confusion - Physical Exam Vital Signs: Temperature 98.4 F Pulse Rate [Brachial] 60 Pulse Rate 63 Respiratory Rate 20 Blood Pressure [Right Arm] 132/61 Blood Pressure 137/87 O2 Sat by Pulse Oximetry 97 Oriented: Normal, Person Ear: Normal Nose: Normal Throat: Normal Respiratory: Clear Throughout Cardiovascular: Normal : Normal Auscultation: Bowel Sounds: Normal Palpation: Normal Tenderness: Normal Skin: Normal Musculoskeletal: Left, Hand, Leg, Motor Deficit (MILD CHRONIC WEAKNESS) Mood Description: Calm Speech Pattern: Clear, Appropriate - Assessment/Plan (1) TIA (transient ischemic attack) Status: Acute Plan: ADMIT, SERIAL EKG AND CE. CT HEAD ON ADMISSION. VERIFY HOME MEDICATION. ASPIRIN, STATIN THERAPY. BP AND BS CONTROL, POTASSIUM REPLACEMENT (2) Hypertension Status: Acute (3) Hypokalemia Status: Acute (4) Diabetes mellitus type 1 Status: Acute (5) Hypothyroidism Status: Acute (6) Anxiety Status: Acute - Allergies Allergies/Adverse Reactions: Allergies Allergy/AdvReac Type Severity Reaction Status Date / Time No Known Drug Allergies Allergy Verified 09/21/21 17:23
[2021-09-22] MEDS ORDERED: ASPIRIN EC 81 MG PO SCH (16:00)
[2021-09-22] MEDS ORDERED: XANAX PO SCH (16:00)
[2021-09-23] MEDS ORDERED: NORVASC TAB 10 MG PO SCH (09:00)
[2021-09-23] MEDS ORDERED: LOTENSIN TAB 10 MG PO SCH (09:00)
== END 2021-09-22 16:04 | disposition home or self-care (01) ==
LOC: ER 13:27 → MED/SURG 13:27
PROVIDERS: ADMIT Internal Medicine; ATTEND Internal Medicine
DX: I25.10 Atherosclerotic heart disease of native coronary artery without angina pectoris; M19.90 Unspecified osteoarthritis, unspecified site; E87.6 Hypokalemia; R06.02 Shortness of breath; R42 Dizziness and giddiness; E03.8 Other specified hypothyroidism; F41.8 Other specified anxiety disorders; Z20.822 Contact with and (suspected) exposure to COVID-19; E78.2 Mixed hyperlipidemia; I10 Essential (primary) hypertension; G45.8 Other transient cerebral ischemic attacks and related syndromes; E11.65 Type 2 diabetes mellitus with hyperglycemia

== ENCOUNTER 2022-05-10 10:21 | Observation (INO) ==
[2022-05-10] MEDS ORDERED: ZOFRAN INJ 4 MG VIAL IVP PRN (11:41)
[2022-05-10] MEDS ORDERED: MORPHINE SULFATE INJ 2 MG INJ IVP PRN (11:41)
[2022-05-10] MEDS ORDERED: NORCO 5/325 MG TAB PO PRN (11:42)
[2022-05-10] MEDS: TORADOL 30 MG VIAL IVP SCH ×2 (14:06→22:34)
[2022-05-10] MEDS: NS 1,000 ML IV 1,000 ML IV SCH (14:06)
[2022-05-10 14:22] VITALS: BMI 22.1
--- NOTE | 2022-05-10 14:51 | RAD ---
HISTORYBack painSTUDYLumbar spine three viewsCOMPARISONNoneFINDINGSMild levocurvature of the lumbar spine with anatomic alignment. Degenerative disc narrowing with small osteophytes present at multiple lumbar levels without fracture, bone destruction or subluxation. The pedicles, facets and sacroiliac joints are unremarkable for age.IMPRESSIONNo acute findings. Mild levocurvature with moderately advanced multilevel degenerative disc disease and spondylosis.Electronically signed by: MCKINLEY GUILLEN (May 10, 2022 14:50:11)
--- NOTE | 2022-05-10 14:53 | RAD ---
HISTORYBilateral hip painSTUDYBilateral hips two viewsCOMPARISONLeft hip 06/10/2020FINDINGSThere is no evidence for fracture or dislocation or osteolytic disease involving either hip. There is mild degenerative bone production at the acetabular margins, right greater than left. The periarticular soft tissues are normal.IMPRESSIONNo acute findings. Asymmetric hip osteoarthrosis, right greater than left.Electronically signed by: MCKINLEY GUILLEN (May 10, 2022 14:52:03)
[2022-05-10 15:36] LABS: BASOPHILS % (AUTO) 0.6 % (0.2-1.0); EOSINOPHILS # (AUTO) 0.1 x10^3/uL (0.0-0.2); EOSINOPHILS % (AUTO) 1.8 % (0.9-2.9); HEMATOCRIT 33.7 % (36.0-47.0); HEMOGLOBIN 11.4 g/dL (12.0-16.0); LYMPHOCYTES # (AUTO) 1.1 X10^3/uL (1.3-2.9); MEAN CORPUSCULAR HEMOGLOBIN 27.6 pg (27.0-34.0); MEAN CORPUSCULAR HGB CONC 33.7 g/dL (33.0-35.0); MEAN CORPUSCULAR VOLUME 81.9 fL (80.0-100.0); MEAN PLATELET VOLUME 7.2 fL (7.4-11.0); MONOCYTES # (AUTO) 0.5 x10^3/uL (0.3-0.8); MONOCYTES % (AUTO) 9.3 % (0.0-13.0); NEUTROPHILS # (AUTO) 3.9 x10^3/uL (2.2-4.8); NEUTROPHILS % (AUTO) 69.3 % (42.0-75.0); RED BLOOD COUNT 4.12 X10^6/uL (3.5-5.4); RED CELL DISTRIBUTION WIDTH 15.5 % (11.6-16.5); WHITE BLOOD COUNT 5.6 X10^3/uL (3.6-10.0)
[2022-05-10 16:00] LABS: ALANINE AMINOTRANSFERASE 18 Units/L (12-78); ALBUMIN 3.1 g/dL (3.4-5.0); ALKALINE PHOSPHATASE 103 Units/L (46-116); ASPARTATE AMINO TRANSFERASE 11 Units/L (15-37); BLOOD UREA NITROGEN 12 mg/dL (7-18); CALCIUM 8.3 mg/dL (8.5-10.1); CARBON DIOXIDE 32.1 mmol/L (21-32); CHLORIDE 101 mmol/L (98-107); COR NA(FOR HYPERGLY) 142 mmol/L (136-145); SODIUM 141 mmol/L (136-145); eGFR NON BLACK RACES > 60 (>60)
[2022-05-10 17:14] LABS: BILIRUBIN,URINE NEGATIVE (NEGATIVE); BLOOD/HEMOGLOBIN,URINE NEGATIVE (NEGATIVE); GLUCOSE, URINE NEGATIVE (NEGATIVE); KETONES,URINE 3+ (NEGATIVE); LEUKOCYTE ESTERASE ,URINE NEGATIVE (NEGATIVE); NITRITES,URINE NEGATIVE (NEGATIVE); PROTEIN,URINE NEGATIVE (NEGATIVE); UROBILINOGEN,URINE NORMAL (NORMAL)
[2022-05-10 17:29] LABS: APPEARANCE,URINE CLEAR (CLEAR); COLOR,URINE YELLOW (YELLOW)
[2022-05-11] MEDS: NS 1,000 ML IV 1,000 ML IV SCH (02:23)
[2022-05-11] MEDS: TORADOL 30 MG VIAL IVP SCH (05:12)
[2022-05-11 05:26] LABS: EOSINOPHILS # (AUTO) 0.2 x10^3/uL (0.0-0.2); EOSINOPHILS % (AUTO) 4.7 % (0.9-2.9); HEMOGLOBIN 10.2 g/dL (12.0-16.0); LYMPHOCYTES # (AUTO) 1.3 X10^3/uL (1.3-2.9); LYMPHOCYTES % (AUTO) 28.9 % (21.0-51.0); MEAN CORPUSCULAR HEMOGLOBIN 27.4 pg (27.0-34.0); MEAN CORPUSCULAR HGB CONC 33.9 g/dL (33.0-35.0); MEAN CORPUSCULAR VOLUME 80.9 fL (80.0-100.0); MEAN PLATELET VOLUME 7.8 fL (7.4-11.0); MONOCYTES # (AUTO) 0.5 x10^3/uL (0.3-0.8); NEUTROPHILS # (AUTO) 2.4 x10^3/uL (2.2-4.8); NEUTROPHILS % (AUTO) 53.4 % (42.0-75.0); RED CELL DISTRIBUTION WIDTH 15.4 % (11.6-16.5); WHITE BLOOD COUNT 4.5 X10^3/uL (3.6-10.0)
[2022-05-11 05:50] LABS: ALANINE AMINOTRANSFERASE 16 Units/L (12-78); ALBUMIN 2.6 g/dL (3.4-5.0); ALKALINE PHOSPHATASE 89 Units/L (46-116); ASPARTATE AMINO TRANSFERASE 12 Units/L (15-37); BLOOD UREA NITROGEN 13 mg/dL (7-18); CALCIUM 8.1 mg/dL (8.5-10.1); CARBON DIOXIDE 32.9 mmol/L (21-32); CHLORIDE 106 mmol/L (98-107); COR CA(FOR HYPOALB) 9.2 mg/dL (8.5-10.1); CREATININE 0.65 mg/dL (0.55-1.02); SODIUM 144 mmol/L (136-145); TOTAL PROTEIN 6.1 g/dL (6.4-8.2); eGFR NON BLACK RACES > 60 (>60)
[2022-05-11] MEDS ORDERED: VALIUM PO ONE (09:23)
[2022-05-11] MEDS ORDERED: POTASSIUM CHL 60 MEQ/NS 0.45% 500 ML IV PRN (10:03)
[2022-05-11] MEDS ORDERED: K-DUR TAB 20 MEQ PO PRN (10:03)
[2022-05-11] MEDS ORDERED: POTASSIUM CHLORIDE LIQ 20 MEQ UDC PO PRN (10:03)
[2022-05-11] MEDS ORDERED: MAGNESIUM SULFATE 1 GRAM/100 mL PREMIX 1 G/100 ML BAG IV PRN (10:03)
[2022-05-11] MEDS ORDERED: POTASSIUM CHL 40 MEQ/NS 0.45% 500 ML IV PRN (10:03)
[2022-05-11] MEDS ORDERED: KLOR-CON PO PRN (10:03)
[2022-05-11] MEDS ORDERED: MICRO K EXTEN CAP 10 MEQ PO PRN (10:03)
[2022-05-11] MEDS ORDERED: K-RIDER 10 MEQ/NS 100 ML 10 MEQ/100 ML BAG IV PRN (10:03)
--- NOTE | 2022-05-11 11:16 | RAD ---
HISTORYLeft shoulder painSTUDYLeft shoulder two viewsCOMPARISONTuscarawas [facility] 2019FINDINGSAge-appropriate osteopenia. No fracture or dislocation or bone destruction noted. There is degenerative change at the glenohumeral joint with slight elevation of the humeral head in the glenoid. The periarticular soft tissues are normal.IMPRESSIONNo acute findings identified on two view examination. Moderate glenohumeral joint osteoarthrosis. Standard orthogonal views were not obtained to confirm glenohumeral position.Electronically signed by: MCKINLEY GUILLEN (May 11, 2022 11:14:47)
[2022-05-11 12:17] VITALS: BP 121/58
== END 2022-05-11 13:35 | disposition home or self-care (01) ==
LOC: ICU
PROVIDERS: ADMIT Internal Medicine; ATTEND Internal Medicine
DX: Z20.822 Contact with and (suspected) exposure to COVID-19; M25.512 Pain in left shoulder; M54.59 Other low back pain; K21.9 Gastro-esophageal reflux disease without esophagitis; R79.82 Elevated C-reactive protein (CRP); R20.0 Anesthesia of skin; F41.8 Other specified anxiety disorders; M25.551 Pain in right hip; Z79.899 Other long term (current) drug therapy; I10 Essential (primary) hypertension; M51.36 Other intervertebral disc degeneration, lumbar region; M25.552 Pain in left hip; E11.65 Type 2 diabetes mellitus with hyperglycemia